=== PATIENT | male | born 1945 | race Caucasian/White ===

== ENCOUNTER 2017-05-13 08:10 | Emergency (ER) | payer MEDICARE, BC ==
--- NOTE | 2017-05-13 08:40 | EDM.PDOC ---
ED HPI GENERAL MEDICAL PROBLEM - General Chief Complaint: Respiratory Problem Stated Complaint: STOMACH PAIN [id number] Time Seen by Provider: 05/13/17 08:30 Source of Information: Reports: Patient, Family, RN, RN Notes Reviewed History Limitations: Reports: No Limitations - History of Present Illness INITIAL COMMENTS - FREE TEXT/NARRATIVE: Pt presents to ER with c/o cough, sneezing, runny nose for the past 3-4 days. He states he has also had abdominal discomfort for the past 3-4 days. He states his cough is productive of clear phlegm. He admits to chills, decreased appetite , and increased SOB with exertion. He denies fever, sore throat, and chest pains. states the pt has been told in the past that his BP is high and he should be treated for it. She also states that the patient drinks 3-4 alcoholic drinks per day. Onset: Gradual Location: Reports: Chest, Abdomen Severity: Moderate Improves with: Reports: None Worsens with: Reports: None Associated Symptoms: Reports: Cough, cough w sputum, Fever/Chills, Loss of Appetite, Shortness of Breath - Related Data Allergies Allergy/AdvReac Type Severity Reaction Status Date / Time No Known Allergies Allergy Verified 05/13/17 08:37 Home Meds: Home Meds . [No Known Home Meds] 05/13/17 [History] Past Medical History HEENT History: Reports: Impaired Vision Other HEENT History: wears glasses Cardiovascular History: Reports: Hypertension, Other (See Below) Other Cardiovascular History: told his BP has been high but has never been on medication Respiratory History: Reports: None Gastrointestinal History: Reports: None Genitourinary History: Reports: None Musculoskeletal History: Reports: None Neurological History: Reports: None Psychiatric History: Reports: None Endocrine/Metabolic History: Reports: None Hematologic History: Reports: None Immunologic History: Reports: None Oncologic (Cancer) History: Reports: None Dermatologic History: Reports: None Social & Family History - Tobacco Use Smoking Status *Q: Never Smoker - Caffeine Use Caffeine Use: Reports: Coffee - Recreational Drug Use Recreational Drug Use: No ED ROS GENERAL - Review of Systems Review Of Systems: ROS reveals no pertinent complaints other than HPI. ED EXAM, GENERAL - Physical Exam Exam: See Below Exam Limited By: No Limitations General Appearance: Alert, WD/WN, No Apparent Distress Eye Exam: Bilateral Eye: EOMI, Normal Inspection Ears: Normal External Exam, Hearing Grossly Normal Nose: Normal Inspection Throat/Mouth: Normal Inspection, Normal Voice, No Airway Compromise Head: Atraumatic, Normocephalic Neck: Normal Inspection, Supple, Non-Tender, Full Range of Motion Respiratory/Chest: No Respiratory Distress, No Accessory Muscle Use, Chest Non- Tender, Crackles (bases bilat) Cardiovascular: Normal Peripheral Pulses, Regular Rate, Rhythm, No Edema, No Gallop, No JVD, No Murmur, No Rub Peripheral Pulses: 2+: Radial (L), Radial (R), Dorsalis Pedis (L), Dorsalis Pedis (R) GI/Abdominal: Normal Bowel Sounds, Soft, Distended (Male) Exam: Deferred Rectal (Males) Exam: Deferred Back Exam: Normal Inspection, Full Range of Motion Extremities: Normal Inspection, Normal Range of Motion, Non-Tender, No Pedal Edema, Normal Capillary Refill Neurological: Alert, Oriented, CN II-XII Intact, Normal Cognition, Normal Gait, Normal Reflexes, No Motor/Sensory Deficits Psychiatric: Normal Affect, Normal Mood Skin Exam: Warm, Dry, Intact, Normal Color, No Rash Lymphatic: No Adenopathy EKG INTERPRETATION EKG Date: 05/13/17 Time: 08:47 Rhythm: NSR Rate (Beats/Min): 86 Yoder: Normal P-Wave: Present QRS: Normal ST-T: Normal QT: Normal Comparison: NA - No Prior EKG EKG Interpretation Comments: Nonspecific intraventricular conduction delay, left ventricular hypertrophy, inferior infarct, age indeterminate. Course - Vital Signs Last Recorded V/S: Last Vital Signs Temp 97.8 F 05/13/17 10:09 Pulse 79 05/13/17 10:09 Resp 18 05/13/17 10:09 BP 181/103 H 05/13/17 10:09 Pulse Ox 97 05/13/17 10:09 - Orders/Labs/Meds Orders: Active Orders 24 hr Category Date Time Status EKG Documentation Completion [RC] STAT Care 05/13/17 08:36 Active Labs: Laboratory Tests 05/13/17 05/13/17 05/13/17 Range/Units 08:46 08:46 09:20 WBC 5.4 (5.0-10.0) 10^3/uL RBC 4.98 (4.6-6.2) 10^6/uL Hgb 16.8 (14.0-18.0) g/dL Hct 48.2 (40.0-54.0) % MCV 96.8 (80-100) fL MCH 33.7 (27.0-34.0) pg MCHC 34.9 (33.0-35.0) g/dL Plt Count 227 (150-450) 10^3/uL Neut % (Auto) 65.4 (42.2-75.2) % Lymph % (Auto) 19.9 L (20.5-50.1) % [place] % (Auto) 11.5 H (2-8) % Eos % (Auto) 2.8 (1.0-3.0) % Baso % (Auto) 0.4 (0.0-1.0) % Sodium 136 (135-145) mmol/L Potassium 3.8 (3.6-5.0) mmol/L Chloride 102 (101-111) mmol/L Carbon Dioxide 23.0 (21.0-31.0) mmol/L Anion Gap 14.8 BUN 12 (7-18) mg/dL Creatinine 0.8 (0.6-1.3) mg/dL Est Cr Clr Drug Dosing 80.33 mL/min Estimated GFR (MDRD) > 60 BUN/Creatinine Ratio 15.00 Glucose 102 (74-105) mg/dL Calcium 9.0 (8.4-10.2) mg/dl Total Bilirubin 1.6 H (0.2-1.0) mg/dL AST 47 H (10-42) IU/L ALT 44 (10-60) IU/L Alkaline Phosphatase 52 (42-121) IU/L Troponin I < 0.02 (0.00-0.02) ng/ml B-Natriuretic Peptide 102 H (0-100) pg/ml Total Protein 7.3 (6.7-8.2) g/dl Albumin 3.9 (3.2-5.5) g/dl Globulin 3.4 Albumin/Globulin Ratio 1.15 Urine Color Dark yellow (YELLOW) Urine Appearance Slightly cloudy (CLEAR) Urine pH 7.0 (5.0-9.0) Ur Specific [place] 1.020 (1.005-1.030) Urine Protein 30 H (NEGATIVE) Urine Glucose (UA) Negative (NEGATIVE) Urine Ketones 40 H (NEGATIVE) Urine Occult Blood Negative (NEGATIVE) Urine Nitrite Negative (NEGATIVE) Urine Bilirubin Small H (NEGATIVE) Urine Urobilinogen 1.0 (0.2-1.0) mg/dL Ur Leukocyte Esterase Negative (NEGATIVE) Urine RBC 0-5 /HPF Urine WBC 0-5 (0-5/HPF) /HPF Ur Epithelial Cells Rare /HPF Urine Bacteria Rare (0-FEW/HPF) /HPF Urine Mucus Few H /LPF Meds: Medications Discontinued Medications Generic Name Dose Route Start Last Admin Trade Name Silverq PRN Reason Stop Dose Admin Iopamidol 75 ml 05/13/17 09:20 05/13/17 09:48 Isovue-300 (61%) IVPUSH 05/13/17 09:21 75 ml ONETIME ONE Administration Departure - Departure Time of Disposition: 11:06 Disposition: Home, Self-Care 01 Condition: Fair Clinical Impression: Anxiety, Viral upper respiratory illness - Discharge Information Instructions: Shortness of Breath, Saes-tj-Tuhd, Upper Respiratory Infection, Adult, [id number], Panic Attacks, [id number] Forms: ED Department Discharge Additional Instructions: RX: Omeprazole, Zofran ODT, Lorazepam Make an appointment to establish with a primary care facility. - My Orders Last 24 Hours: My Active Orders 05/13/17 08:36 EKG Documentation Completion [RC] STAT - Assessment/Plan Last 24 Hours: My Active Orders 05/13/17 08:36 EKG Documentation Completion [RC] STAT
[2017-05-13 09:14] LABS: CHLORIDE,CL 102 mmol/L (101-111); SODIUM,NA 136 mmol/L (135-145)
[2017-05-13] MEDS ORDERED: Iopamidol 612 MG/ML 75 ML Bottle IVPUSH ONE (09:20)
[2017-05-13] MEDS ORDERED: Ondansetron 4 MG/2 ML SDV IV ONE (11:06)
--- NOTE | 2017-05-17 10:47 | EKG ---
05/13/2017 - RENUKA DAMON - FINDINGS: I reviewed the EKG and agree with the machine's reading. [facility] /[id number]
== END 2017-05-13 11:31 | disposition home or self-care (01) ==
LOC: DL.ED 08:10
DX: J06.9 Acute upper respiratory infection, unspecified (principal); F41.9 Anxiety disorder, unspecified; I10 Essential (primary) hypertension
CPT/HCPCS: 36415; 71260; 74177; 80053; 81001; 83880; 84484; 85025; 93005; 93010; 96374; 99285; J2405; Q9967; 99284

== ENCOUNTER 2019-07-13 13:05 | Emergency (ER) | payer BC, MEDICARE | END 2019-07-13 16:10 | disposition left against medical advice (07) | LOC: DL.ED 13:05 | DX: Z53.21 Procedure and treatment not carried out due to patient leaving prior to being seen by health care provider (principal) ==

== ENCOUNTER 2019-07-14 09:46 | Emergency (ER) | payer MEDICARE, BC ==
[2019-07-14] MEDS ORDERED: amLODIPine 5 MG Tab PO ONE (11:47)
[2019-07-14] MEDS ORDERED: Hydrochlorothiazide 25 MG Tab PO ONE (11:48)
[2019-07-14 12:39] LABS: ANION GAP 13.5; CHLORIDE,CL 100 mmol/L (101-111); SODIUM,NA 136 mmol/L (135-145)
--- NOTE | 2019-07-15 17:50 | EDM.PDOC ---
Scribed by Tracey Paul 07/14/19 1104 for Fiordaliza Crooks NP ED HPI GENERAL MEDICAL PROBLEM - General Chief Complaint: General Stated Complaint: SEVERE COLD Time Seen by Provider: 07/14/19 10:43 Source of Information: Reports: Patient, RN, RN Notes Reviewed History Limitations: Reports: No Limitations - History of Present Illness INITIAL COMMENTS - FREE TEXT/NARRATIVE: A 74-year-old gentleman who presents with cold and cough symptoms with no productive cough for 4 days. No fevers, chills, shortness of breath, chest pain , peripheral edema, nausea, vomiting, nasal congestion or sinus congestion. He has not tried anything for his symptoms. Blood pressure noted to be elevated. Patient has not taken his blood pressure medication (Propranolol) for 4 days. He denies any chest pain, palpitations, headaches, or peripheral edema. Onset Date: 07/10/19 Duration: Getting Worse Location: Reports: Chest Quality: Reports: Ache Severity: Mild Improves with: Reports: None Worsens with: Reports: None Associated Symptoms: Reports: No Other Symptoms - Related Data Allergies Allergy/AdvReac Type Severity Reaction Status Date / Time No Known Allergies Allergy Verified 07/13/19 14:05 Home Meds: Home Meds . [No Known Home Meds] 05/13/17 [History] Past Medical History HEENT History: Reports: Impaired Vision Other HEENT History: wears glasses Cardiovascular History: Reports: Hypertension, Other (See Below) Other Cardiovascular History: told his BP has been high but has never been on medication Respiratory History: Reports: None Gastrointestinal History: Reports: GERD Genitourinary History: Reports: None Musculoskeletal History: Reports: None Neurological History: Reports: None Psychiatric History: Reports: None Endocrine/Metabolic History: Reports: None Hematologic History: Reports: None Immunologic History: Reports: None Oncologic (Cancer) History: Reports: None Dermatologic History: Reports: None Social & Family History - Tobacco Use Smoking Status *Q: Never Smoker Second Hand Smoke Exposure: No - Caffeine Use Caffeine Use: Reports: Coffee - Alcohol Use Days Per Week of Alcohol Use: 7 Number of Drinks Per Day: 2 Total Drinks Per Week: 14 - Recreational Drug Use Recreational Drug Use: No ED ROS GENERAL - Review of Systems Review Of Systems: Comprehensive ROS is negative, except as noted in HPI. ED EXAM, GENERAL - Physical Exam Exam: See Below Exam Limited By: No Limitations General Appearance: Alert, WD/WN, No Apparent Distress Eye Exam: Bilateral Eye: EOMI, Normal Inspection, PERRL Ears: Normal External Exam, Normal Canal, Hearing Grossly Normal, Normal TMs Nose: Normal Inspection, Normal Mucosa, No Blood Throat/Mouth: Normal Inspection, Normal Lips, Normal Teeth, Normal Gums, Normal Oropharynx, Normal Voice, No Airway Compromise Head: Atraumatic, Normocephalic Neck: Normal Inspection, Supple, Non-Tender, Full Range of Motion Respiratory/Chest: No Respiratory Distress, No Accessory Muscle Use, Chest Non- Tender, Crackles (left lower lobe) Cardiovascular: Normal Peripheral Pulses, Regular Rate, Rhythm, No Edema, No Gallop, No JVD, No Murmur, No Rub GI/Abdominal: Normal Bowel Sounds, Soft, Non-Tender, No Organomegaly, No Distention, No Abnormal Bruit, No Mass (Male) Exam: Deferred Rectal (Males) Exam: Deferred Back Exam: Normal Inspection, Full Range of Motion, NT Extremities: Normal Inspection, Normal Range of Motion, Non-Tender, Normal Capillary Refill, No Pedal Edema Neurological: Alert, Oriented, CN II-XII Intact, Normal Cognition, Normal Gait, Normal Reflexes, No Motor/Sensory Deficits Psychiatric: Normal Affect, Normal Mood Skin Exam: Warm, Dry, Intact, Normal Color, No Rash Lymphatic: No Adenopathy Course - Vital Signs Last Recorded V/S: Last Vital Signs Temp 98.1 F 07/14/19 10:11 Pulse 88 07/14/19 10:11 Resp 20 07/14/19 10:11 BP 197/99 H 07/14/19 12:23 Pulse Ox 98 07/14/19 10:11 - Orders/Labs/Meds Labs: Laboratory Tests 07/14/19 Range/Units 12:16 Sodium 136 (135-145) mmol/L Potassium 3.5 L (3.6-5.0) mmol/L Chloride 100 L (101-111) mmol/L Carbon Dioxide 26.0 (21.0-31.0) mmol/L Anion Gap 13.5 BUN 9 (7-18) mg/dL Creatinine 0.8 (0.6-1.3) mg/dL Est Cr Clr Drug Dosing 72.60 mL/min Estimated GFR (MDRD) > 60 Glucose 101 (74-105) mg/dL Calcium 8.7 (8.4-10.2) mg/dl Meds: Medications Discontinued Medications Generic Name Dose Route Start Last Admin Trade Name Kristopher PRN Reason Stop Dose Admin Amlodipine Besylate 5 mg 07/14/19 11:47 07/14/19 12:23 Norvasc PO 07/14/19 11:48 5 mg ONETIME ONE Administration Hydrochlorothiazide 25 mg 07/14/19 11:48 07/14/19 12:23 Hydrochlorothiazide PO 07/14/19 11:49 25 mg ONETIME ONE Administration - Radiology Interpretation Free Text/Narrative:: Chest x-ray: No acute findings. See rad report. - Re-Assessments/Exams Free Text/Narrative Re-Assessment/Exam: Review lab and chest ray results with patient. HCTZ 25 mg and Norvasc 5 mg administered with some reduction in BP. RX for Norvasc, HCTZ, potassium and Flonase send with patient. Follow up with two days. Departure - Departure Time of Disposition: 13:15 Disposition: Home, Self-Care 01 Condition: Good Clinical Impression: Viral URI Hypertension Qualifiers: Hypertension type: essential hypertension Qualified Code(s): I10 - Essential ( primary) hypertension - Discharge Information Instructions: Upper Respiratory Infection, Adult, Iuur-[id number], Hypertension, Cwxx-[id number] Referrals: PCP,None [Primary Care Provider] - Forms: ED Department Discharge Additional Instructions: Take medications as prescribed. follow up with PCP in the clinic in two days. [place] fluids and rest. Return to the ER if symptoms worsens. Sepsis Event Note - Evaluation Sepsis Screening Result: No Definite Risk - Focused Exam Date Exam was Performed: 07/15/19 Time Exam was Performed: 17:49 I have read and agree with the documentation that has been completed regarding this visit. By signing this record, I attest that the documentation was completed in my physical presence and is an accurate record of the encounter.
== END 2019-07-14 13:50 | disposition home or self-care (01) ==
LOC: DL.ED 09:46
DX: J06.9 Acute upper respiratory infection, unspecified (principal); I10 Essential (primary) hypertension
CPT/HCPCS: 36415; 71046; 80048; 87804; 99283; A9270

== ENCOUNTER 2020-04-21 11:33 | Inpatient (IN) | payer MEDICARE, BC ==
[~2020-04-21 11:33] MED LIST: cefTRIAXone 1 GM in Sodium Chloride 0.9% 50 ML IV SCH
[2020-04-21] MEDS ORDERED: Ondansetron 4 MG/2 ML SDV IVPUSH ONE (14:05)
[2020-04-21] MEDS ORDERED: Sodium Chloride 0.9% 1,000 ML IV ONE (14:05)
[2020-04-21 14:43] LABS: ANION GAP 12.9 mEq/L (7-13); CHLORIDE,CL 94 mmol/L (98-107); SODIUM,NA 134 mmol/L (136-145)
--- NOTE | 2020-04-21 16:21 | EDM.PDOC ---
ED HPI GENERAL MEDICAL PROBLEM - General Chief Complaint: General Stated Complaint: NAUSEA,COUGH,FATIGE,WEAK,KNOWN EXPOSURE Time Seen by Provider: 04/21/20 14:00 Source of Information: Reports: Patient History Limitations: Reports: No Limitations - History of Present Illness INITIAL COMMENTS - FREE TEXT/NARRATIVE: This 75 yo male patient reports to the ED with increased shortness of breath over the past 4 days. The patient also reports some chest tightness. The patient has been exposed to COVID through close family contact. Onset: Gradual Duration: Day(s):, Constant, Getting Worse Location: Reports: Chest Quality: Reports: Other Severity: Moderate Improves with: Reports: None Worsens with: Reports: None Context: Reports: Activity Associated Symptoms: Reports: Cough, Shortness of Breath Left Chest Pain Score (Numeric/FACES): 5 - Related Data Allergies Allergy/AdvReac Type Severity Reaction Status Date / Time No Known Allergies Allergy Verified 04/21/20 13:12 Home Meds: Home Meds Furosemide [Lasix] 20 mg PO DAILY 04/21/20 [History] amLODIPine [Norvasc] 5 mg PO DAILY 04/21/20 [History] lisinopriL [Lisinopril] 10 mg PO DAILY 04/21/20 [History] Past Medical History HEENT History: Reports: Impaired Vision Other HEENT History: wears glasses Cardiovascular History: Reports: Hypertension, Other (See Below) Other Cardiovascular History: told his BP has been high but has never been on medication Respiratory History: Reports: None Gastrointestinal History: Reports: GERD Genitourinary History: Reports: None Musculoskeletal History: Reports: None Neurological History: Reports: None Psychiatric History: Reports: None Endocrine/Metabolic History: Reports: None Hematologic History: Reports: None Immunologic History: Reports: None Oncologic (Cancer) History: Reports: None Dermatologic History: Reports: None - Infectious Disease History Infectious Disease History: Reports: None Social & Family History - Family History Family Medical History: Unobtainable - Tobacco Use Tobacco Use Status *Q: Never Tobacco User Second Hand Smoke Exposure: No - Caffeine Use Caffeine Use: Reports: Coffee - Recreational Drug Use Recreational Drug Use: No ED ROS GENERAL - Review of Systems Review Of Systems: Comprehensive ROS is negative, except as noted in HPI. ED EXAM, GENERAL - Physical Exam Exam: See Below Exam Limited By: No Limitations General Appearance: Alert, WD/WN, Moderate Distress, Obese Eye Exam: Bilateral Eye: EOMI, Normal Inspection, PERRL Ears: Normal External Exam, Normal Canal, Hearing Grossly Normal, Normal TMs Nose: Normal Inspection, Normal Mucosa, No Blood Throat/Mouth: Normal Inspection, Normal Lips, Normal Teeth, Normal Gums, Normal Oropharynx, Normal Voice, No Airway Compromise Head: Atraumatic, Normocephalic Neck: Normal Inspection, Supple, Non-Tender, Full Range of Motion Respiratory/Chest: Decreased Breath Sounds Cardiovascular: Normal Peripheral Pulses, Regular Rate, Rhythm, No Edema, No Gallop, No JVD, No Murmur, No Rub GI/Abdominal: Normal Bowel Sounds, Soft, Non-Tender, No Organomegaly, No Distention, No Abnormal Bruit, No Mass (Male) Exam: Deferred Rectal (Males) Exam: Deferred Back Exam: Normal Inspection, Full Range of Motion, NT Extremities: Normal Inspection, Normal Range of Motion, Non-Tender, Normal Capillary Refill, No Pedal Edema Neurological: Alert, Oriented, CN II-XII Intact, Normal Cognition, Normal Gait, Normal Reflexes, No Motor/Sensory Deficits Psychiatric: Normal Affect, Normal Mood Skin Exam: Warm, Dry, Intact, Normal Color, No Rash Lymphatic: No Adenopathy Course - Vital Signs Last Recorded V/S: Last Vital Signs Temp 36.4 C 04/21/20 11:49 Pulse 110 H 04/21/20 11:49 Resp 18 04/21/20 11:49 BP 124/76 04/21/20 11:49 Pulse Ox 95 04/21/20 11:49 - Orders/Labs/Meds Orders: Active Orders 24 hr Category Date Time Status EKG 12 Lead [EKG Documentation Completion] [RC] URGENT Care 04/21/20 13:39 Active Chest wo Cont [CT] Urgent Exams 04/21/20 15:29 Taken CULTURE BLOOD [BC] Stat Lab 04/21/20 13:48 Ordered Labs: Laboratory Tests 04/21/20 04/21/20 04/21/20 Range/Units 13:30 14:10 14:10 WBC 5.2 (5.0-10.0) 10^3/uL RBC 5.02 (4.6-6.2) 10^6/uL Hgb 17.5 (14.0-18.0) g/dL Hct 48.6 (40.0-54.0) % MCV 96.8 (80-100) fL MCH 34.9 H (27.0-34.0) pg MCHC 36.0 H (33.0-35.0) g/dL Plt Count 215 D (150-450) 10^3/uL Neut % (Auto) 73.3 (42.2-75.2) % Lymph % (Auto) 11.2 L (20.5-50.1) % [place] % (Auto) 15.3 H (2-8) % Eos % (Auto) 0.0 L (1.0-3.0) % Baso % (Auto) 0.2 (0.0-1.0) % D-Dimer, Quantitative (0-400) ng/mL Sodium 134 L (136-145) mmol/L Potassium 2.9 L (3.5-5.1) mmol/L Chloride 94 L (98-107) mmol/L Carbon Dioxide 30 (21-32) mmol/L Anion Gap 12.9 (7-13) mEq/L BUN 19 H (7-18) mg/dL Creatinine 1.13 (0.70-1.30) mg/dL Est Cr Clr Drug Dosing 50.65 mL/min Estimated GFR (MDRD) > 60 BUN/Creatinine Ratio 16.8 (No establ ref range) Glucose 109 H (74-99) mg/dL Lactic Acid (0.4-2.0) mmol/L Calcium 8.3 L (8.5-10.1) mg/dL Total Bilirubin 1.1 H (0.2-1.0) mg/dL AST 97 H (15-37) U/L ALT 119 H (16-63) U/L Alkaline Phosphatase 79 (46-116) U/L Troponin I 0.018 (0.000-0.056) ng/mL Total Protein 7.4 (6.4-8.2) g/dL Albumin 3.0 L (3.4-5.0) g/dL Globulin 4.4 Albumin/Globulin Ratio 0.68 SARS CoV-2 RNA Rapid BORIS Positive H (NEGATIVE) 04/21/20 04/21/20 Range/Units 14:10 14:10 WBC (5.0-10.0) 10^3/uL RBC (4.6-6.2) 10^6/uL Hgb (14.0-18.0) g/dL Hct (40.0-54.0) % MCV (80-100) fL MCH (27.0-34.0) pg MCHC (33.0-35.0) g/dL Plt Count (150-450) 10^3/uL Neut % (Auto) (42.2-75.2) % Lymph % (Auto) (20.5-50.1) % [place] % (Auto) (2-8) % Eos % (Auto) (1.0-3.0) % Baso % (Auto) (0.0-1.0) % D-Dimer, Quantitative 479 H (0-400) ng/mL Sodium (136-145) mmol/L Potassium (3.5-5.1) mmol/L Chloride (98-107) mmol/L Carbon Dioxide (21-32) mmol/L Anion Gap (7-13) mEq/L BUN (7-18) mg/dL Creatinine (0.70-1.30) mg/dL Est Cr Clr Drug Dosing mL/min Estimated GFR (MDRD) BUN/Creatinine Ratio (No establ ref range) Glucose (74-99) mg/dL Lactic Acid 1.7 (0.4-2.0) mmol/L Calcium (8.5-10.1) mg/dL Total Bilirubin (0.2-1.0) mg/dL AST (15-37) U/L ALT (16-63) U/L Alkaline Phosphatase (46-116) U/L Troponin I (0.000-0.056) ng/mL Total Protein (6.4-8.2) g/dL Albumin (3.4-5.0) g/dL Globulin Albumin/Globulin Ratio SARS CoV-2 RNA Rapid BORIS (NEGATIVE) Meds: Medications Discontinued Medications Generic Name Dose Route Start Last Admin Trade Name Freq PRN Reason Stop Dose Admin Sodium Chloride 1,000 mls @ 999 mls/hr 04/21/20 14:05 04/21/20 14:18 Normal Saline IV 04/21/20 15:05 999 mls/hr .BOLUS ONE Administration Ondansetron HCl 4 mg 04/21/20 14:05 04/21/20 14:18 Zofran IVPUSH 04/21/20 14:06 4 mg ONETIME ONE Administration Departure - Departure Time of Disposition: 16:20 Disposition: Admitted As Inpatient 68 Condition: Fair Clinical Impression: Hypoxemia, COVID-19 - Discharge Information *PRESCRIPTION DRUG MONITORING PROGRAM REVIEWED*: Not Applicable *COPY OF PRESCRIPTION DRUG MONITORING REPORT IN PATIENT JAYLEEN: Not Applicable Care Plan Goals: Discussed the patient's history, examination, lab and CT results with Dr. Medina. Dr. Medina accepted the patient for continued evaluation and further management as an inpatient at [facility]. Sepsis Event Note (ED) - Evaluation Sepsis Screening Result: No Definite Risk - Focused Exam Vital Signs: Vital Signs Temp Pulse Resp BP Pulse Ox 04/21/20 11:49 36.4 C 110 H 18 124/76 95 - My Orders Last 24 Hours: My Active Orders 04/21/20 13:39 EKG 12 Lead [EKG Documentation Completion] [RC] URGENT 04/21/20 13:48 CULTURE BLOOD [BC] Stat 04/21/20 15:29 Chest wo Cont [CT] Urgent - Assessment/Plan Last 24 Hours: My Active Orders 04/21/20 13:39 EKG 12 Lead [EKG Documentation Completion] [RC] URGENT 04/21/20 13:48 CULTURE BLOOD [BC] Stat 04/21/20 15:29 Chest wo Cont [CT] Urgent
--- NOTE | 2020-04-21 16:33 | CT ---
EXAMINATION: Chest wo Cont SEX: Male AGE: 75 years CLINICAL HISTORY: 75-year-old male experiencing shortness of breath (: Positive). Chest radiograph 14 July 2019 revealed "no acute findings". Scan technique: Volume acquisition of data emergency unenhanced CT scan of the chest (bony thorax, lungs and mediastinum) obtained with patient lying supine on the Siemens multi slice scanner [place], [place]. All data archived in the PACS system for storage, reformatting and study. Interpretation: Abnormal. 1. *Peripheral, multi lobar subpleural "groundglass" densities scattered throughout both lung mkceon that have characteristic of diffuse vasculitis and Covid Pneumonia. 2. No proximal lobar consolidation or air bronchograms. No atelectasis/collapse. 3. No malignant-appearing lung mass or significant hilar/mediastinal lymphadenopathy. 4. Normal cardiac silhouette. No pericardial effusion. Calcifications normal caliber ectatic thoracic aorta. 5. No pulmonary vascular congestion, cephalization of vascular flow, alveolar edema or pleural effusion. 6. Kyphosis dorsal spine associated with anterior compression midthoracic vertebra and associated hypertrophic marginal spondylosis. 7. No pneumothorax or pneumomediastinum. Midline tracheal bronchial airway unremarkable. 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 No sign of malignancy, heart failure or bacterial pneumonia.
[2020-04-21] MEDS ORDERED: Azithromycin 500 MG in Sodium Chloride 0.9% 250 ML IV SCH ×2 (17:00→17:45)
[2020-04-21] MEDS ORDERED: Ondansetron 4 MG Tab.DIS PO PRN (17:04)
[2020-04-21] MEDS ORDERED: Acetaminophen 325 MG Tab PO PRN (17:04)
[2020-04-21] MEDS ORDERED: Docusate Sodium 100 MG Cap PO PRN (17:04)
[2020-04-21] MEDS ORDERED: cefTRIAXone 1,000 MG in Sodium Chloride 0.9% 50 ML IV SCH (17:15)
[2020-04-21] MEDS: Dexamethasone 4 MG/ML SDV IVPUSH SCH ×2 (17:55)
[2020-04-21] MEDS: Azithromycin 500 MG in Sodium Chloride 0.9% 250 ML IV SCH (17:59)
[2020-04-21] MEDS: cefTRIAXone 1 GM in Sodium Chloride 0.9% 50 ML IV SCH (17:59)
[2020-04-21] MEDS: Formoterol/Mometasone 200-5 MCG 8.8 GM Inhaler IH SCH (18:05)
[2020-04-21] MEDS: Sodium Chloride 0.9% 1,000 ML IV SCH (18:06)
--- NOTE | 2020-04-21 19:25 | HP ---
CHIEF COMPLAINT: Cough and nausea and fatigue. HISTORY OF PRESENT ILLNESS: The patient is a 75-year-old gentleman who was admitted through the emergency room because of increasing shortness of breath over the past 4 days and the patient also complained of some chest tightness with deep inspiration and the patient has been exposed to COVID through close family contact. The patient was also complaining of nausea. In the emergency room, the patient was noted to have oxygen saturation in the 84% with moderate exertion, but 91% with rest. The patient had a CAT scan of the chest and this showed COVID pneumonia. Because of this, the patient was then admitted for further management. PAST MEDICAL HISTORY: Remarkable for hypertension. REVIEW OF SYSTEMS: The patient denies any orthopnea, PND, headache, diarrhea, dysuria. SOCIAL HISTORY: The patient is a nonsmoker and nonalcohol drinker. MEDICATIONS: Lasix 20 mg daily, amlodipine 5 mg daily, lisinopril 10 mg daily. ALLERGIES: No known drug allergies. PHYSICAL EXAMINATION: General: The patient is alert and oriented, very pleasant, not in any acute respiratory distress. He is on oxygen per nasal cannula. Vital Signs: Blood pressure is 124/76, pulse of 110, respirations of 18, saturation is 95% on room air and this is at rest. SHEENT: Normocephalic. There are pink palpebral conjunctivae. Sclerae anicteric. No JVD. No lymphadenopathy. Heart: Regular rate and rhythm. Normal S1 and S2. No gallops. No rubs. Lungs: Have diminished breath sounds in both bases, but no significant crackles, no wheezing. Abdomen: Soft, nontender. Bowel sounds positive. Extremities: Negative for any pedal edema. No calf tenderness. LABORATORY WORKUP: CBC: WBC 5.2, hemoglobin is 17.5, hematocrit is 48.6, platelets are 215. Comp panel remarkable for sodium 134, potassium is 2.9, chloride of 94, glucose is 109, AST is 97, ALT is 119, and the rest of the panel unremarkable. D-dimer is 479. Lactic acid is 1.7. CAT scan of the chest showed ground-glass appearance compatible with COVID pneumonia. ADMITTING DIAGNOSES: 1. Coronavirus disease pneumonia. 2. Hypoxemia. 3. Hypokalemia. 4. Hyponatremia. 5. Hypochloremia. TREATMENT PLAN: The patient is going to be admitted to acute care COVID isolation unit. The patient is going to be empirically started on dexamethasone IV as well as IV antibiotics. The patient also will be started on remdesivir as discussed with the patient. He will be resumed on his lisinopril and amlodipine. He will also be on DVT prophylaxis and the rest of the management as necessary. No intubation and no cardiac resuscitation as per the patient's wishes. [facility] /[id number]
[2020-04-21] MEDS ORDERED: Potassium Chloride 10 MEQ Tab.ER PO ONE (19:30)
[2020-04-21] MEDS ORDERED: Water For Injection, Sterile 40 ML ONE (20:16)
[2020-04-21] MEDS: Albuterol 6.7 GM Inhaler INH SCH (21:15)
[2020-04-22] MEDS: Sodium Chloride 0.9% 1,000 ML IV SCH ×2 (00:22→17:13)
--- NOTE | 2020-04-22 06:42 | HP ---
CONTINUATION: I spoke with the patient and provided information about remdesivir treatment as being under emergency use authorization and not fully FDA approved or reviewed. I discussed potential side effects including liver abnormalities and also discussed other potential treatment options that are currently not FDA approved to treat COVID-19. The patient gives permission for remdesivir. [facility] /[id number]
[2020-04-22 07:11] LABS: ANION GAP 13.3 mEq/L (7-13); CHLORIDE,CL 102 mmol/L (98-107); SODIUM,NA 138 mmol/L (136-145)
[2020-04-22] MEDS ORDERED: Potassium Chloride 10 MEQ Tab.ER PO ONE (07:24)
[2020-04-22] MEDS: Azithromycin 500 MG in Sodium Chloride 0.9% 250 ML IV SCH ×2 (07:45→17:12)
[2020-04-22] MEDS: Formoterol/Mometasone 200-5 MCG 8.8 GM Inhaler IH SCH ×2 (08:57→17:12)
[2020-04-22] MEDS: Enoxaparin 40 MG/0.4 ML Syringe SUBCUT SCH (08:58)
[2020-04-22] MEDS: amLODIPine 5 MG Tab PO SCH (08:58)
[2020-04-22] MEDS: Albuterol 6.7 GM Inhaler INH SCH ×4 (09:02→21:28)
[2020-04-22] MEDS: Lisinopril 10 MG Tab PO SCH (09:02)
--- NOTE | 2020-04-22 10:33 | PN ---
DATE: 04/22/2020 SUBJECTIVE: The patient is a 75-year-old gentleman admitted with shortness of breath and COVID pneumonia and hypokalemia. The patient had a good night's sleep, and this morning, he is feeling a little bit better and he is not short of breath and coughing spells has also improved. The patient denies any chest pain, headache, abdominal pain, or any other complaints. LABORATORY DATA: Lab workup this morning; CBC: WBC 3.4, hemoglobin is 15.7, hematocrit is 44.6, platelets 194. Comp panel: Potassium is 3.3 (improving) and glucose is 133, calcium is 7.3, AST is 71, ALT is 91 (improving), total protein is 5.9, and albumin is 2.3. The rest of the panel unremarkable. OBJECTIVE: Vital Signs: Blood pressure is 146/73, pulse of 71, respirations of 16, temperature of 97.6, saturation is 95% on 2 L per nasal cannula. Heart: Regular rate and rhythm. Normal S1 and S2. No gallops. No rubs. Lungs: Diminished breath sounds on both bases, but no crackles, no wheezing. Abdomen: Protuberant, but soft, nontender. Bowel sounds positive. Extremities: Negative for any pedal edema. No calf tenderness. MEDICATIONS: Reviewed. PLAN: We will continue with his IV antibiotics that is azithromycin and ceftriaxone. We will continue with IV dexamethasone and remdesivir and DVT prophylaxis, and will also continue with his amlodipine as well as benazepril, and we will give him another dose of potassium chloride 40 mEq p.o. x1 today. We will recheck basic metabolic panel, CMP in a.m. [facility] /[id number]
[2020-04-22] MEDS: Dexamethasone 4 MG/ML SDV IVPUSH SCH (17:10)
[2020-04-22] MEDS: cefTRIAXone 1 GM in Sodium Chloride 0.9% 50 ML IV SCH (18:56)
[2020-04-23] MEDS: Formoterol/Mometasone 200-5 MCG 8.8 GM Inhaler IH SCH ×3 (05:24→17:57)
[2020-04-23 07:19] LABS: ANION GAP 13.6 mEq/L (7-13); CHLORIDE,CL 102 mmol/L (98-107); SODIUM,NA 136 mmol/L (136-145)
[2020-04-23] MEDS: amLODIPine 5 MG Tab PO SCH (08:08)
[2020-04-23] MEDS: Lisinopril 10 MG Tab PO SCH (08:08)
[2020-04-23] MEDS: Enoxaparin 40 MG/0.4 ML Syringe SUBCUT SCH (08:09)
[2020-04-23] MEDS: Albuterol 6.7 GM Inhaler INH SCH ×4 (08:09→20:10)
[2020-04-23] MEDS ORDERED: Sodium Chloride 0.9% 10 ML Syringe FLUSH PRN (08:22)
--- NOTE | 2020-04-23 11:22 | PN ---
DATE: 04/23/2020 SUBJECTIVE: The patient is slowly improving, although he is still complaining of some nausea and fatigue and mild shortness of breath, but his oxygen saturation is improving and O2 sat this morning is 95% and this is on 1 L per nasal cannula. Otherwise, he denies any chest pain, abdominal pain, headache, nor any other complaints. LABORATORY DATA: Lab workup this morning, CBC; WBC is 3.8, hemoglobin is 15, hematocrit is 42, and platelet is 200. Comp panel, AST is 54, ALT is 79 (improving), and glucose is 116. The rest of the panel unremarkable. OBJECTIVE: Vital Signs: Blood pressure is 148/90, pulse of 68, respiration of 20, temperature of 97.8, and saturation is 95% on 1 L per nasal cannula. Heart: Regular rate and rhythm. No gallops. No rubs. Lungs: Diminished breath sounds on both bases, but no significant crackles. No wheezing. Abdomen: Protuberant, but soft and nontender. Bowel sounds positive. Extremity: Remarkable for trace bilateral pedal edema. No calf tenderness. MEDICATIONS: Reviewed. PLAN: We will continue with his present management and continue with IV antibiotics and dexamethasone as well as remdesivir. I am going to discontinue his IV fluids and I am going to resume his Lasix as at home. [facility] /[id number]
[2020-04-23] MEDS: Azithromycin 500 MG in Sodium Chloride 0.9% 250 ML IV SCH (17:25)
[2020-04-23] MEDS: Dexamethasone 4 MG/ML SDV IVPUSH SCH (17:25)
[2020-04-23] MEDS: cefTRIAXone 1 GM in Sodium Chloride 0.9% 50 ML IV SCH (18:45)
[2020-04-23] MEDS: Sodium Chloride 0.9% 10 ML Syringe FLUSH PRN ×4 (20:00→22:18)
[2020-04-24] MEDS: Formoterol/Mometasone 200-5 MCG 8.8 GM Inhaler IH SCH (07:40)
[2020-04-24] MEDS ORDERED: Furosemide 20 MG Tab PO SCH (09:00)
[2020-04-24] MEDS ORDERED: Lisinopril 20 MG Tab PO SCH (09:00)
--- NOTE | 2020-04-24 09:22 | PN ---
DATE: 04/24/2020 SUBJECTIVE: The patient is a 75-year-old gentleman who was admitted because of COVID pneumonia and hypoxemia. The patient continues to do well and the patient's oxygen saturation is 93% to 95%, and this has been on room air. The patient mentioned that he is still feeling a little bit fatigued, but he is feeling much better. He denies any chest pain, orthopnea, PND, fever, chills, abdominal pain, or any other complaints. OBJECTIVE: Vital Signs: Blood pressure is 167/86, pulse of 64, respirations of 18, temperature of 97.6, and saturation is 93% on room air. Heart: Regular rate and rhythm. Normal S1 and S2. No gallops. No rubs. Lungs: Equal bilaterally. No crackles. No wheezing. Abdomen: Protuberant, but soft and nontender. Bowel sounds positive. Extremities: Negative for any significant pedal edema. No calf tenderness. MEDICATIONS: Reviewed. PLAN: I am going to increase his lisinopril to 20 mg a day and continue the rest of his management. I am also going to discharge him today. [facility] /[id number]
[2020-04-24] MEDS: amLODIPine 5 MG Tab PO SCH (09:52)
[2020-04-24] MEDS: Enoxaparin 40 MG/0.4 ML Syringe SUBCUT SCH (09:54)
[2020-04-24] MEDS: Albuterol 6.7 GM Inhaler INH SCH (09:56)
--- NOTE | 2020-04-27 08:05 | DISCH ---
FINAL DIAGNOSES: 1. COVID pneumonia. 2. Hypoxemia. 3. Hypokalemia. 4. Hyponatremia and hypochloremia. 5. Hypertension. BRIEF HISTORY OF PRESENT ILLNESS: The patient is a 75-year-old gentleman who was admitted because of increasing shortness of breath, chest tightness, and hypoxemia with saturation 84% with moderate exertion. PERTINENT LAB, X-RAY, AND OTHER TESTS: CAT scan of the chest showed abnormalities consistent with COVID vasculitis and/or viral pneumonia. There are no signs of malignancy or heart failure. Lab workup on 04/21/2020, CBC unremarkable. D-dimer is 479. Comp panel remarkable for potassium of 2.9, sodium 134, chloride of 94. AST is 97, ALT is 119. Lab workup on 04/23/2020 WBC is 3.8, hemoglobin is 15, hematocrit is 42, platelet is 200. Comp panel: Sodium is 136, potassium is 3.6, glucose 116, AST is 54, ALT is 79, total protein of 5.6, and albumin is 2.1. The rest of the panel unremarkable. HOSPITAL COURSE: The patient was admitted to [facility]. He was empirically started on IV antibiotics with azithromycin and ceftriaxone, and also IV dexamethasone and remdesivir. He was resumed on his home medication including lisinopril as well as amlodipine. The patient had a slow improvement, but his oxygen saturation slowly improved and blood pressure was also noted to be elevated and his lisinopril was increased to 20 mg a day. Potassium was also repleted during the hospital stay. Blood cultures came back negative. The rest of the hospital days were unremarkable and the patient was discharged. CONDITION ON DISCHARGE: Improved. He is going to follow up with Dr. Coyle in 7 to 10 days. We will continue with his dexamethasone orally for the next 5 days and also continue with oral azithromycin. He will be continued on his lisinopril 20 mg a day as well as his amlodipine and Lasix. [facility] /[id number]
== END 2020-04-24 13:10 | disposition home or self-care (01) | DRG 177 ==
LOC: DL.ED 11:33 → DL.MS 16:22
PROVIDERS: ADMIT Internal Medicine; ATTEND Internal Medicine
PROC: 8E0ZXY6 Isolation (ICD-10-PCS; principal; 2020-04-21)
PROC: XW033E5 Introduction of Remdesivir Anti-infective into Peripheral Vein, Percutaneous Approach, New Technology Group 5 (ICD-10-PCS; 2020-04-21)
DX: U07.1 COVID-19 (principal); J12.89 Other viral pneumonia; E87.1 Hypo-osmolality and hyponatremia; E87.6 Hypokalemia; E87.8 Other disorders of electrolyte and fluid balance, not elsewhere classified; R09.02 Hypoxemia; H54.7 Unspecified visual loss; I10 Essential (primary) hypertension; K21.9 Gastro-esophageal reflux disease without esophagitis; Z79.899 Other long term (current) drug therapy
CPT/HCPCS: 36415; 71250; 80053; 83605; 84145; 84484; 85025; 85379; 87040; 90653; 93005; 96374; 99284; 99285-25; A9270-GY; G0008; J0456; J0696; J1100; J1650; J2405; J7030; J7050; U0002

== ENCOUNTER 2021-08-16 08:27 | Emergency (ER) | payer MEDICARE, BC ==
[2021-08-16 09:48] LABS: ANION GAP 17.6 mEq/L (7-13); CHLORIDE,CL 101 mmol/L (98-107); SODIUM,NA 140 mmol/L (136-145)
[2021-08-16 09:54] LABS: PTT,PARTIAL THROMBOPLSTIN TIME 24.7 SEC (22.0-34.0)
[2021-08-16] MEDS ORDERED: Magnesium Sulfate/Water 2 GM in Premix Bag 1 BAG IV ONE (10:34)
== END 2021-08-16 10:55 | disposition home or self-care (01) ==
LOC: DL.ED 08:27
DX: R07.89 Other chest pain (principal); S00.81XA Abrasion of other part of head, initial encounter; E80.7 Disorder of bilirubin metabolism, unspecified; R79.0 Abnormal level of blood mineral; Z79.899 Other long term (current) drug therapy; W18.30XA Fall on same level, unspecified, initial encounter
CPT/HCPCS: 36415; 70450; 71045; 80053; 80307; 82150; 83605; 83690; 83735; 83880; 84484; 85025; 85610; 85730; 86140; 93005; 99285-25

== ENCOUNTER → 2021-08-16 08:46 | Emergency (ER) | payer MEDICARE, BC | LOC: DL.ED 08:46 | DX: Z53.8 Procedure and treatment not carried out for other reasons (principal) | CPT/HCPCS: 93010; 99285 ==

== ENCOUNTER 2022-02-01 10:01 | Emergency (ER) | payer MEDICARE, BC ==
[2022-02-01 10:43] LABS: ANION GAP 11.4 mEq/L (7-13)
== END 2022-02-01 12:00 | disposition home or self-care (01) ==
LOC: DL.ED 10:01
DX: R60.0 Localized edema (principal); I10 Essential (primary) hypertension; Z79.899 Other long term (current) drug therapy
CPT/HCPCS: 36415; 71045; 80048; 83880; 85025; 93005; 99284

== ENCOUNTER 2022-06-07 05:58 | Day surgery (SDC) | payer MEDICARE, BC ==
[2022-06-07] MEDS ORDERED: Midazolam 1 MG/ML 2 ML SDV IV ONE ×2 (05:59→07:09)
[2022-06-07] MEDS ORDERED: fentaNYL 100 MCG/2 ML SDV IV ONE ×3 (05:59→07:08)
[2022-06-07] MEDS ORDERED: fentaNYL 100 MCG/2 ML SDV ONE (06:15)
[2022-06-07] MEDS ORDERED: Midazolam 1 MG/ML 2 ML SDV ONE (06:15)
[2022-06-07] MEDS ORDERED: Dextrose 5%-0.45% NaCl 1,000 ML IV SCH (07:00)
[2022-06-07] MEDS ORDERED: Sodium Chloride 0.9% 10 ML Syringe FLUSH PRN (07:00)
[2022-06-07] MEDS ORDERED: Sodium Chloride 0.9% 10 ML Syringe FLUSH SCH (09:00)
== END 2022-06-07 10:00 | disposition home or self-care (01) ==
LOC: DL.ENDO 05:58
PROVIDERS: ATTEND Internal Medicine Gastroenterology
DX: K29.50 Unspecified chronic gastritis without bleeding (principal); K44.9 Diaphragmatic hernia without obstruction or gangrene; K70.30 Alcoholic cirrhosis of liver without ascites; D63.1 Anemia in chronic kidney disease; I12.9 Hypertensive chronic kidney disease with stage 1 through stage 4 chronic kidney disease, or unspecified chronic kidney disease; N18.9 Chronic kidney disease, unspecified; R73.9 Hyperglycemia, unspecified; E53.8 Deficiency of other specified B group vitamins; E83.51 Hypocalcemia; E88.09 Other disorders of plasma-protein metabolism, not elsewhere classified
CPT/HCPCS: 43239; 87077; J2250; J3010; J7042; 88305

== ENCOUNTER 2022-06-18 11:41 | Emergency (ER) | payer MEDICARE, BC ==
[2022-06-18 12:48] LABS: ANION GAP 11.9 mEq/L (7-13); CHLORIDE,CL 103 mmol/L (98-107); SODIUM,NA 137 mmol/L (136-145)
[2022-06-18 12:49] LABS: ESTIMATED GFR 87 mL/min (>=60)
[2022-06-18 13:44] LABS: CORONAVIRUS COVID-19 NAA NEGATIVE (NEGATIVE)
== END 2022-06-18 15:58 ==
LOC: DL.ED 11:41
DX: G45.9 Transient cerebral ischemic attack, unspecified (principal); Z20.822 Contact with and (suspected) exposure to COVID-19
CPT/HCPCS: 0240U; 36415; 70450; 71045; 80053; 81001; 83880; 84484; 85025; 85610; 93005; 99285; C1758

== ENCOUNTER 2022-08-16 06:23 | Day surgery (SDC) | payer MEDICARE, BC ==
[~2022-08-16 06:23] MED LIST changes: +Sodium Chloride 0.9% 10 ML Syringe FLUSH PRN; +Sodium Chloride 0.9% 10 ML Syringe FLUSH SCH; -cefTRIAXone 1 GM in Sodium Chloride 0.9% 50 ML IV SCH
[2022-08-16] MEDS: Dextrose 5%-0.45% NaCl 1,000 ML IV SCH (06:55)
[2022-08-16] MEDS ORDERED: Midazolam 1 MG/ML 2 ML SDV ONE (07:24)
[2022-08-16] MEDS ORDERED: fentaNYL 100 MCG/2 ML SDV ONE (07:25)
[2022-08-16] MEDS: fentaNYL 100 MCG/2 ML SDV IV ONE ×2 (07:30→07:31)
[2022-08-16] MEDS: Midazolam 1 MG/ML 2 ML SDV IV ONE ×3 (07:31→07:40)
== END 2022-08-16 10:02 | disposition home or self-care (01) ==
LOC: DL.ENDO 06:23
PROVIDERS: ATTEND Internal Medicine Gastroenterology
DX: D64.9 Anemia, unspecified (principal); K76.9 Liver disease, unspecified; F10.20 Alcohol dependence, uncomplicated
CPT/HCPCS: 45378; J2250; J3010; J7042

== ENCOUNTER 2022-12-21 14:57 | Emergency (ER) | payer MEDICARE, BC ==
[2022-12-21] MEDS ORDERED: Sodium Chloride 0.9% 10 ML Syringe FLUSH PRN (15:05)
[2022-12-21] MEDS ORDERED: Aspirin 81 MG Tab.Chew PO ONE (15:07)
[2022-12-21 15:18] LABS: HEMATOCRIT 31.3 % (40.0-54.0); HEMOGLOBIN 10.9 g/dL (14.0-18.0); MEAN CORPUSCULAR HEMOGLOBIN 35.4 pg (27.0-34.0); MEAN CORPUSCULAR HGB CONC 34.8 g/dL (33.0-35.0); MEAN CORPUSCULAR VOLUME 101.6 fL (80-100); PLATELET COUNT,PLT 165 10^3/uL (150-450); RED BLOOD CELL COUNT 3.08 10^6/uL (4.6-6.2); WHITE BLOOD CELL COUNT,WBC 6.6 10^3/uL (5.0-10.0)
[2022-12-21 15:23] LABS: BASOPHILS PERCENT AUTO 0.5 % (0.0-1.0); EOSINOPHILS PERCENT AUTO 9.5 % (1.0-3.0); LYMPHOCYTES PERCENT AUTO 22.5 % (20.5-50.1); MONOCYTES PERCENT AUTO 18.6 % (2-8); NEUTROPHILS PERCENT AUTO 48.9 % (42.2-75.2)
[2022-12-21 15:41] LABS: ALBUMIN 2.7 g/dL (3.4-5.0); ANION GAP 14.3 mEq/L (7-13); BILIRUBIN TOTAL 3.2 mg/dL (0.2-1.0); BUN/CREATININE RATIO 11.9 (No establ ref range); C-REACTIVE PROTEIN 0.2 mg/dL (0.0-0.9); CALCIUM 8.6 mg/dL (8.5-10.1); CREATININE 1.01 mg/dL (0.70-1.30); EST CRCL DRUG DOSING (CG) 54.97 mL/min; MAGNESIUM 1.5 mg/dL (1.8-2.4); POTASSIUM,K 3.3 mmol/L (3.5-5.1); PROTEIN TOTAL,TP 6.4 g/dL (6.4-8.2)
[2022-12-21 15:44] LABS: A/G RATIO 0.73; LACTIC ACID 2.7 mmol/L (0.4-2.0)
[2022-12-21 15:55] LABS: BAND PERCENT MAN 1 %; EOSINOPHILS PERCENT MAN 10 % (1-3); LYMPHOCYTES PERCENT MAN 23 % (20-50); MONOCYTES PERCENT MAN 10 % (2-8); SEG NEUTROPHILS PERCENT MAN 56 % (42-75)
[2022-12-21] MEDS ORDERED: Aluminum Hydroxide/Magnesium Hydroxide/Simethicone Susp 30 ML Cup PO ONE (16:51)
[2022-12-21] MEDS ORDERED: Lidocaine 2% Viscous Solution 15 ML UD PO ONE (16:51)
[2022-12-21 17:52] LABS: FOLIC ACID > 20.0 ng/mL (8.6-58.9)
== END 2022-12-21 17:57 | disposition home or self-care (01) ==
LOC: DL.ED 14:57
DX: K21.9 Gastro-esophageal reflux disease without esophagitis (principal); I11.0 Hypertensive heart disease with heart failure; I50.9 Heart failure, unspecified; E78.5 Hyperlipidemia, unspecified; Z86.16 Personal history of COVID-19; Z79.899 Other long term (current) drug therapy
CPT/HCPCS: 36415; 71045; 80053; 80307; 82607; 82746; 83605; 83735; 83880; 84484; 85025; 86140; 93005; 93010; 99284; 99285; A9270; J3490

== ENCOUNTER 2023-11-29 18:44 | Inpatient (IN) | payer MEDICARE, BC ==
[2023-11-29] MEDS ORDERED: Sodium Chloride 0.9% 10 ML Syringe FLUSH PRN (19:16)
[2023-11-29] MEDS ORDERED: Morphine 2 MG/ML SYRINGE IVPUSH PRN (19:16)
[2023-11-29] MEDS ORDERED: Ondansetron 4 MG Tab.DIS PO PRN (19:16)
[2023-11-29] MEDS ORDERED: Acetaminophen 325 MG Tab PO PRN (19:16)
[2023-11-29] MEDS ORDERED: Lactulose Soln 10 GM/15 ML 30 ML UD Cup PO PRN (19:27)
[2023-11-29 19:34] LABS: BASOPHILS PERCENT AUTO 0.1 % (0.0-1.0); EOSINOPHILS PERCENT AUTO 0.2 % (1.0-3.0); HEMATOCRIT 36.9 % (40.0-54.0); HEMOGLOBIN 12.9 g/dL (14.0-18.0); LYMPHOCYTES PERCENT AUTO 6.1 % (20.5-50.1); MEAN CORPUSCULAR HEMOGLOBIN 36.2 pg (27.0-34.0); MEAN CORPUSCULAR VOLUME 103.7 fL (80-100); MONOCYTES PERCENT AUTO 10.5 % (2-8); NEUTROPHILS PERCENT AUTO 83.1 % (42.2-75.2); PLATELET COUNT,PLT 164 10^3/uL (150-450); RED BLOOD CELL COUNT 3.56 10^6/uL (4.6-6.2); WHITE BLOOD CELL COUNT,WBC 12.8 10^3/uL (5.0-10.0)
[2023-11-29 19:56] LABS: ALANINE AMINOTRANSFERASE,ALT 25 U/L (16-63); ALBUMIN 2.7 g/dL (3.4-5.0); ALKALINE PHOSPHATASE 90 U/L (46-116); ANION GAP 12.1 mEq/L (7-13); ASPARTATE AMNIOTRANSFERASE,AST 31 U/L (15-37); BILIRUBIN TOTAL 4.7 mg/dL (0.2-1.0); BLOOD UREA NITROGEN,BUN 30 mg/dL (7-18); BUN/CREATININE RATIO 20.5 (No establ ref range); CALCIUM 9.3 mg/dL (8.5-10.1); CARBON DIOXIDE,CO2 27 mmol/L (21-32); CHLORIDE,CL 97 mmol/L (98-107); CREATININE 1.46 mg/dL (0.70-1.30); GLUCOSE RANDOM 96 mg/dL (70-99); POTASSIUM,K 4.1 mmol/L (3.5-5.1); PROTEIN TOTAL,TP 7.2 g/dL (6.4-8.2); SODIUM,NA 132 mmol/L (136-145)
[2023-11-29 19:58] LABS: ESTIMATED GFR 50 mL/min (>=60)
[2023-11-29 19:59] LABS: B-TYPE NATRIURETIC PEPTIDE,BNP 47 pg/ml (0-100); INR 1.3 (0.9-1.2); PROTHROMBIN TIME 12.9 SEC (9.0-12.0)
[2023-11-29] MEDS: Warfarin 5 MG Tab PO SCH (21:18)
[2023-11-29] MEDS: Enoxaparin 60 MG/0.6 ML Syringe SUBCUT SCH (21:24)
[2023-11-29] MEDS: Acetaminophen/oxyCODONE 325-5 MG Tab PO PRN (21:24)
[2023-11-29] MEDS: atorvaSTATin 20 MG Tab PO SCH (22:46)
[2023-11-29] MEDS: Spironolactone 25 MG Tab PO SCH (22:46)
[2023-11-30] MEDS: Folic Acid 1 MG Tab PO SCH (10:24)
[2023-11-30] MEDS: Thiamine 100 MG Tab PO SCH (10:24)
[2023-11-30] MEDS: Furosemide 40 MG Tab PO SCH (10:25)
[2023-11-30 11:12] LABS: APPEARANCE,URINE CLEAR (CLEAR); BILIRUBIN,URINE NEGATIVE (NEGATIVE); COLOR,URINE DARK YELLOW (YELLOW); GLUCOSE,URINE NEGATIVE (NEGATIVE); KETONES,URINE NEGATIVE (NEGATIVE); LEUKOCYTE ESTERASE,URINE NEGATIVE (NEGATIVE); NITRITE,URINE NEGATIVE (NEGATIVE); OCCULT BLOOD,URINE NEGATIVE (NEGATIVE); PH,URINE 5.5 (5.0-9.0); PROTEIN,URINE NEGATIVE (NEGATIVE)
[2023-11-30 13:58] LABS: RBC,URINE NOT SEEN /HPF (0-5); WBC,URINE NOT SEEN /HPF (0-5/HPF)
[2023-11-30 13:59] LABS: BACTERIA,URINE RARE /HPF (0-FEW/HPF); EPITHELIAL CELLS,URINE RARE /HPF (NOT SEEN)
[2023-11-30] MEDS: Acetaminophen 325 MG Tab PO PRN (17:58)
[2023-11-30] MEDS: Sodium Chloride 0.9% 1,000 ML IV SCH (17:59)
[2023-11-30 19:44] LABS: INR 1.3 (0.9-1.2)
[2023-12-01 06:13] LABS: BASOPHILS PERCENT AUTO 0.3 % (0.0-1.0); EOSINOPHILS PERCENT AUTO 5.2 % (1.0-3.0); HEMOGLOBIN 11.5 g/dL (14.0-18.0); LYMPHOCYTES PERCENT AUTO 18.6 % (20.5-50.1); MEAN CORPUSCULAR HEMOGLOBIN 36.7 pg (27.0-34.0); MEAN CORPUSCULAR HGB CONC 34.8 g/dL (33.0-35.0); MEAN CORPUSCULAR VOLUME 105.4 fL (80-100); MONOCYTES PERCENT AUTO 17.1 % (2-8); NEUTROPHILS PERCENT AUTO 58.8 % (42.2-75.2); PLATELET COUNT,PLT 163 10^3/uL (150-450); RED BLOOD CELL COUNT 3.13 10^6/uL (4.6-6.2)
[2023-12-01 06:33] LABS: INR 1.3 (0.9-1.2); PROTHROMBIN TIME 13.4 SEC (9.0-12.0)
[2023-12-01 06:39] LABS: ANION GAP 9.7 mEq/L (7-13); CALCIUM 8.4 mg/dL (8.5-10.1); CREATININE 1.45 mg/dL (0.70-1.30); EST CRCL DRUG DOSING (CG) 39.11 mL/min; POTASSIUM,K 3.7 mmol/L (3.5-5.1)
[2023-12-01] MEDS: Docusate Sodium 100 MG Cap PO PRN (08:46)
[2023-12-01] MEDS: cefTRIAXone 1 GM Vial IVPUSH SCH (08:59)
[2023-12-02 06:24] LABS: BASOPHILS PERCENT AUTO 0.5 % (0.0-1.0); EOSINOPHILS PERCENT AUTO 7.7 % (1.0-3.0); HEMATOCRIT 34.3 % (40.0-54.0); LYMPHOCYTES PERCENT AUTO 26.4 % (20.5-50.1); MEAN CORPUSCULAR HEMOGLOBIN 36.7 pg (27.0-34.0); MEAN CORPUSCULAR VOLUME 104.9 fL (80-100); MONOCYTES PERCENT AUTO 17.2 % (2-8); NEUTROPHILS PERCENT AUTO 48.2 % (42.2-75.2); PLATELET COUNT,PLT 182 10^3/uL (150-450); RED BLOOD CELL COUNT 3.27 10^6/uL (4.6-6.2); WHITE BLOOD CELL COUNT,WBC 6.4 10^3/uL (5.0-10.0)
[2023-12-02 06:41] LABS: ANION GAP 9.1 mEq/L (7-13); CALCIUM 8.4 mg/dL (8.5-10.1); CREATININE 1.3 mg/dL (0.70-1.30); EST CRCL DRUG DOSING (CG) 43.62 mL/min; POTASSIUM,K 4.1 mmol/L (3.5-5.1)
[2023-12-02 06:50] LABS: INR 1.4 (0.9-1.2); PROTHROMBIN TIME 14.6 SEC (9.0-12.0)
[2023-12-03 07:02] LABS: PROTHROMBIN TIME 19.6 SEC (9.0-12.0)
[2023-12-04 06:13] LABS: BASOPHILS PERCENT AUTO 0.3 % (0.0-1.0); EOSINOPHILS PERCENT AUTO 7.9 % (1.0-3.0); HEMATOCRIT 34.3 % (40.0-54.0); LYMPHOCYTES PERCENT AUTO 26.1 % (20.5-50.1); MEAN CORPUSCULAR HEMOGLOBIN 36.8 pg (27.0-34.0); MEAN CORPUSCULAR VOLUME 105.2 fL (80-100); MONOCYTES PERCENT AUTO 18.4 % (2-8); NEUTROPHILS PERCENT AUTO 47.3 % (42.2-75.2); PLATELET COUNT,PLT 177 10^3/uL (150-450); RED BLOOD CELL COUNT 3.26 10^6/uL (4.6-6.2); WHITE BLOOD CELL COUNT,WBC 5.9 10^3/uL (5.0-10.0)
[2023-12-04 06:25] LABS: ANION GAP 13.1 mEq/L (7-13); CALCIUM 8.8 mg/dL (8.5-10.1); CREATININE 1.25 mg/dL (0.70-1.30); EST CRCL DRUG DOSING (CG) 45.37 mL/min; POTASSIUM,K 4.1 mmol/L (3.5-5.1)
[2023-12-04 06:27] LABS: INR 2.7 (0.9-1.2); PROTHROMBIN TIME 26.4 SEC (9.0-12.0)
[2023-12-04] MEDS ORDERED: Apixaban 5 MG Tab PO SCH (21:00)
== END 2023-12-04 15:45 | disposition home or self-care (01) | DRG 300 ==
LOC: UNDOADMIN 18:44 → DL.MS 18:44
PROVIDERS: ADMIT Internal Medicine; ATTEND Student in an Organized Health Care Education/Training Program
DX: I82.442 Acute embolism and thrombosis of left tibial vein (principal); E87.1 Hypo-osmolality and hyponatremia; L03.116 Cellulitis of left lower limb; I10 Essential (primary) hypertension; Z66 Do not resuscitate; R60.9 Edema, unspecified; Z87.891 Personal history of nicotine dependence; Z79.899 Other long term (current) drug therapy; Z79.82 Long term (current) use of aspirin
CPT/HCPCS: 36415; 71045; 80048; 80053; 81001; 82140; 83880; 85025; 85610; 97165-GO; A9270-GY; J0696; J1650; J7030

== ENCOUNTER 2023-12-23 09:13 | Observation (INO) | payer MEDICARE, BC ==
[2023-12-23 10:17] LABS: BASOPHILS PERCENT AUTO 0.4 % (0.0-1.0); EOSINOPHILS PERCENT AUTO 7.9 % (1.0-3.0); HEMATOCRIT 37.4 % (40.0-54.0); HEMOGLOBIN 13.3 g/dL (14.0-18.0); LYMPHOCYTES PERCENT AUTO 25.8 % (20.5-50.1); MEAN CORPUSCULAR HEMOGLOBIN 36.2 pg (27.0-34.0); MEAN CORPUSCULAR HGB CONC 35.6 g/dL (33.0-35.0); MEAN CORPUSCULAR VOLUME 101.9 fL (80-100); MONOCYTES PERCENT AUTO 20.8 % (2-8); NEUTROPHILS PERCENT AUTO 45.1 % (42.2-75.2); PLATELET COUNT,PLT 173 10^3/uL (150-450); RED BLOOD CELL COUNT 3.67 10^6/uL (4.6-6.2); WHITE BLOOD CELL COUNT,WBC 5.3 10^3/uL (5.0-10.0)
[2023-12-23 10:29] LABS: ALBUMIN 3.1 g/dL (3.4-5.0); BILIRUBIN TOTAL 2.4 mg/dL (0.2-1.0); CALCIUM 9.7 mg/dL (8.5-10.1); CREATININE 1.83 mg/dL (0.70-1.30); EST CRCL DRUG DOSING (CG) 29.87 mL/min; MAGNESIUM 1.7 mg/dL (1.8-2.4); PROTEIN TOTAL,TP 7.7 g/dL (6.4-8.2)
[2023-12-23 10:30] LABS: A/G RATIO 0.67
[2023-12-23] MEDS ORDERED: Sodium Chloride 0.9% 10 ML Syringe FLUSH PRN (10:39)
[2023-12-23 10:49] LABS: APPEARANCE,URINE CLEAR (CLEAR); BILIRUBIN,URINE NEGATIVE (NEGATIVE); COLOR,URINE YELLOW (YELLOW); GLUCOSE,URINE NEGATIVE (NEGATIVE); KETONES,URINE NEGATIVE (NEGATIVE); LEUKOCYTE ESTERASE,URINE NEGATIVE (NEGATIVE); NITRITE,URINE NEGATIVE (NEGATIVE); OCCULT BLOOD,URINE TRACE-INTACT (NEGATIVE); PROTEIN,URINE NEGATIVE (NEGATIVE); UROBILINOGEN,URINE 0.2 mg/dL (0.2-1.0)
[2023-12-23] MEDS: Sodium Chloride 0.9% 1,000 ML IV ONE (10:56)
[2023-12-23] MEDS: Magnesium Sulfate/Water 2 GM in Premix Bag 1 BAG IV ONE (10:56)
[2023-12-23 10:58] LABS: PROTHROMBIN TIME 92.7 SEC (9.0-12.0); PTT,PARTIAL THROMBOPLSTIN TIME 69.1 SEC (22.0-34.0)
[2023-12-23 11:00] LABS: INR 10.4 (0.9-1.2)
[2023-12-23 11:06] LABS: BACTERIA,URINE FEW /HPF (0-FEW/HPF); EPITHELIAL CELLS,URINE RARE /HPF (NOT SEEN); MUCUS,URINE FEW /LPF (NOT SEEN); WBC,URINE 0-5 /HPF (0-5/HPF)
[2023-12-23] MEDS: Oxymetazoline 0.05% Nasal Spray 30 ML Bottle NAS ONE (11:32)
[2023-12-23] MEDS: EPINEPHrine Nasal Soln 30 MG/30 ML Bottle NAS ONE (11:32)
[2023-12-23] MEDS: Phytonadione 10 MG in Sodium Chloride 0.9% 50 ML IV ONE (11:52)
[2023-12-23] MEDS ORDERED: HYDROmorphone 0.5 MG/0.5 ML Syringe IVPUSH PRN (16:46)
[2023-12-23] MEDS ORDERED: Albuterol/Ipratropium 3.0-0.5 MG/3 ML Neb Soln NEB PRN (16:46)
[2023-12-23] MEDS ORDERED: Magnesium Hydroxide 400 MG/5 ML Susp 30 ML Cup PO PRN (16:46)
[2023-12-23] MEDS ORDERED: Sennosides/Docusate Sodium 50-8.6 MG Tab PO PRN (16:46)
[2023-12-23] MEDS ORDERED: Promethazine 25 MG/ML SDV IM PRN (16:46)
[2023-12-23] MEDS ORDERED: Naloxone 2 MG/2 ML Syringe IVPUSH PRN (16:46)
[2023-12-23] MEDS ORDERED: Polyethylene Glycol 3350 Powder 17 GM Packet PO PRN (16:46)
[2023-12-23] MEDS ORDERED: Metoprolol Tartrate 5 MG/5 ML SDV IVPUSH PRN (16:53)
[2023-12-23] MEDS ORDERED: hydrALAZINE 20 MG/ML SDV IVPUSH PRN (16:53)
[2023-12-23] MEDS: Melatonin 3 MG Tab PO PRN (21:10)
[2023-12-23] MEDS: Acetaminophen 325 MG Tab PO PRN (21:10)
[2023-12-24 06:33] LABS: BASOPHILS PERCENT AUTO 0.7 % (0.0-1.0); EOSINOPHILS PERCENT AUTO 12.1 % (1.0-3.0); LYMPHOCYTES PERCENT AUTO 21.1 % (20.5-50.1); MEAN CORPUSCULAR HEMOGLOBIN 36.6 pg (27.0-34.0); MEAN CORPUSCULAR HGB CONC 35.3 g/dL (33.0-35.0); MEAN CORPUSCULAR VOLUME 103.7 fL (80-100); MONOCYTES PERCENT AUTO 19.7 % (2-8); NEUTROPHILS PERCENT AUTO 46.4 % (42.2-75.2); PLATELET COUNT,PLT 165 10^3/uL (150-450); RED BLOOD CELL COUNT 3.28 10^6/uL (4.6-6.2); WHITE BLOOD CELL COUNT,WBC 5.9 10^3/uL (5.0-10.0)
[2023-12-24 07:13] LABS: ALBUMIN 2.6 g/dL (3.4-5.0); ANION GAP 14.4 mEq/L (7-13); BILIRUBIN TOTAL 2.9 mg/dL (0.2-1.0); CALCIUM 9.3 mg/dL (8.5-10.1); CREATININE 1.77 mg/dL (0.70-1.30); EST CRCL DRUG DOSING (CG) 30.89 mL/min; MAGNESIUM 2.1 mg/dL (1.8-2.4); POTASSIUM,K 4.4 mmol/L (3.5-5.1); PROTEIN TOTAL,TP 6.6 g/dL (6.4-8.2)
[2023-12-24 07:20] LABS: A/G RATIO 0.65
[2023-12-24 07:23] LABS: INR 3.9 (0.9-1.2); PROTHROMBIN TIME 36.9 SEC (9.0-12.0)
[2023-12-24] MEDS: Thiamine 100 MG Tab PO SCH (08:42)
[2023-12-24] MEDS: Pantoprazole 40 MG Tab.CR PO SCH (08:43)
[2023-12-24] MEDS: Phytonadione 5 MG in Sodium Chloride 0.9% 50 ML IV ONE (09:25)
[2023-12-24] MEDS: Dabigatran 75 MG Cap PO SCH (09:25)
[2023-12-24] MEDS: Midodrine 5 MG Tab PO SCH (09:26)
[2023-12-24] MEDS: Sodium Chloride 0.9% 1,000 ML IV SCH (09:36)
[2023-12-25 06:46] LABS: BASOPHILS PERCENT AUTO 0.7 % (0.0-1.0); EOSINOPHILS PERCENT AUTO 9.9 % (1.0-3.0); HEMATOCRIT 35.5 % (40.0-54.0); HEMOGLOBIN 12.4 g/dL (14.0-18.0); LYMPHOCYTES PERCENT AUTO 25.5 % (20.5-50.1); MEAN CORPUSCULAR HEMOGLOBIN 36.4 pg (27.0-34.0); MEAN CORPUSCULAR HGB CONC 34.9 g/dL (33.0-35.0); MEAN CORPUSCULAR VOLUME 104.1 fL (80-100); MONOCYTES PERCENT AUTO 16.4 % (2-8); NEUTROPHILS PERCENT AUTO 47.5 % (42.2-75.2); PLATELET COUNT,PLT 167 10^3/uL (150-450); RED BLOOD CELL COUNT 3.41 10^6/uL (4.6-6.2); WHITE BLOOD CELL COUNT,WBC 5.7 10^3/uL (5.0-10.0)
[2023-12-25 06:57] LABS: INR 3.8 (0.9-1.2); PROTHROMBIN TIME 35.8 SEC (9.0-12.0)
[2023-12-25 07:05] LABS: ALBUMIN 2.6 g/dL (3.4-5.0); ANION GAP 15.6 mEq/L (7-13); BILIRUBIN TOTAL 2.4 mg/dL (0.2-1.0); BUN/CREATININE RATIO 24.5 (No establ ref range); CALCIUM 9.2 mg/dL (8.5-10.1); CREATININE 1.55 mg/dL (0.70-1.30); EST CRCL DRUG DOSING (CG) 35.27 mL/min; MAGNESIUM 1.7 mg/dL (1.8-2.4); POTASSIUM,K 4.6 mmol/L (3.5-5.1); PROTEIN TOTAL,TP 6.6 g/dL (6.4-8.2)
[2023-12-25 07:11] LABS: A/G RATIO 0.65
[2023-12-25] MEDS: Magnesium Sulfate/Water 2 GM in Premix Bag 1 BAG IV ONE (12:34)
[2023-12-25] MEDS: Phytonadione 10 MG in Sodium Chloride 0.9% 50 ML IV ONE (14:32)
[2023-12-25] MEDS: Magnesium Oxide 400 MG Tab PO ONE ×2 (14:48→14:49)
[2023-12-25] MEDS: Ondansetron 4 MG/2 ML SDV IVPUSH PRN (15:08)
== END 2023-12-25 16:25 | disposition home or self-care (01) ==
LOC: DL.ED 09:13 → DL.MS 12:02 → UNDOADMOB 12:02 → DL.MS 12-24 13:12
PROVIDERS: ADMIT Internal Medicine; ATTEND Internal Medicine
DX: D68.9 Coagulation defect, unspecified (principal); I10 Essential (primary) hypertension; E78.5 Hyperlipidemia, unspecified; K21.9 Gastro-esophageal reflux disease without esophagitis; Z87.891 Personal history of nicotine dependence; Z79.899 Other long term (current) drug therapy
CPT/HCPCS: 36415; 70450; 71045; 80053; 81001; 83735; 84484; 85025; 85610; 85730; 93005; 93010; 96361; 96365; 96366; 96368; 96375; 99284; 99285; A9270; G0378; J2405; J3430; J3475; J3490; J7030

== ENCOUNTER 2024-03-02 10:02 | Emergency (ER) | payer MEDICARE, BC ==
[2024-03-02] MEDS: Sodium Chloride 0.9% 1,000 ML IV ONE (10:00)
[2024-03-02] MEDS: Iopamidol 612 MG/ML 100 ML Bottle IVPUSH ONE (10:19)
[2024-03-02 10:34] LABS: HEMATOCRIT 35.1 % (40.0-54.0); HEMOGLOBIN 12.1 g/dL (14.0-18.0); MEAN CORPUSCULAR HEMOGLOBIN 35.1 pg (27.0-34.0); MEAN CORPUSCULAR HGB CONC 34.5 g/dL (33.0-35.0); MEAN CORPUSCULAR VOLUME 101.7 fL (80-100); PLATELET COUNT,PLT 176 10^3/uL (150-450); RED BLOOD CELL COUNT 3.45 10^6/uL (4.6-6.2); WHITE BLOOD CELL COUNT,WBC 19.3 10^3/uL (5.0-10.0)
[2024-03-02 10:34] LABS: APPEARANCE,URINE CLEAR (CLEAR); BILIRUBIN,URINE NEGATIVE (NEGATIVE); COLOR,URINE YELLOW (YELLOW); GLUCOSE,URINE NEGATIVE (NEGATIVE); KETONES,URINE NEGATIVE (NEGATIVE); LEUKOCYTE ESTERASE,URINE NEGATIVE (NEGATIVE); NITRITE,URINE NEGATIVE (NEGATIVE); OCCULT BLOOD,URINE SMALL (NEGATIVE); PH,URINE 5.5 (5.0-9.0); PROTEIN,URINE NEGATIVE (NEGATIVE)
[2024-03-02 10:38] LABS: BASOPHILS PERCENT AUTO 0.1 % (0.0-1.0); LYMPHOCYTES PERCENT AUTO 2.3 % (20.5-50.1); MONOCYTES PERCENT AUTO 5.7 % (2-8); NEUTROPHILS PERCENT AUTO 91.9 % (42.2-75.2)
[2024-03-02 10:43] LABS: ALANINE AMINOTRANSFERASE,ALT 21 U/L (16-63); ALBUMIN 2.8 g/dL (3.4-5.0); ALKALINE PHOSPHATASE 89 U/L (46-116); ANION GAP 13.3 mEq/L (7-13); ASPARTATE AMNIOTRANSFERASE,AST 38 U/L (15-37); BILIRUBIN TOTAL 3.5 mg/dL (0.2-1.0); BLOOD UREA NITROGEN,BUN 32 mg/dL (7-18); BUN/CREATININE RATIO 17.4 (No establ ref range); CALCIUM 8.9 mg/dL (8.5-10.1); CARBON DIOXIDE,CO2 24 mmol/L (21-32); CHLORIDE,CL 101 mmol/L (98-107); CREATINE KINASE,CK 444 U/L (39-308); CREATININE 1.84 mg/dL (0.70-1.30); GLUCOSE RANDOM 92 mg/dL (70-99); LIPASE 14 U/L (16-77); MAGNESIUM 1.6 mg/dL (1.8-2.4); POTASSIUM,K 4.3 mmol/L (3.5-5.1); PROTEIN TOTAL,TP 6.9 g/dL (6.4-8.2); SODIUM,NA 134 mmol/L (136-145)
[2024-03-02 10:45] LABS: A/G RATIO 0.68; ESTIMATED GFR 37 mL/min (>=60); ETHANOL BLOOD MEDICAL < 3 mg/dL (0)
[2024-03-02 10:47] LABS: BACTERIA,URINE FEW /HPF (0-FEW/HPF); EPITHELIAL CELLS,URINE OCCASIONAL /HPF (NOT SEEN); MUCUS,URINE FEW /LPF (NOT SEEN); RBC,URINE 0-5 /HPF (0-5); WBC,URINE 0-5 /HPF (0-5/HPF)
[2024-03-02 10:49] LABS: LYMPHOCYTES PERCENT MAN 3 % (20-50); MONOCYTES PERCENT MAN 6 % (2-8); SEG NEUTROPHILS PERCENT MAN 91 % (42-75)
[2024-03-02 10:53] LABS: B-TYPE NATRIURETIC PEPTIDE,BNP 484 pg/ml (0-100)
[2024-03-02 10:55] LABS: INR 1.2 (0.9-1.2); PROTHROMBIN TIME 12.1 SEC (9.0-12.0); PTT,PARTIAL THROMBOPLSTIN TIME 26.3 SEC (22.0-34.0)
[2024-03-02 11:03] LABS: LACTIC ACID 3.6 mmol/L (0.4-2.0)
[2024-03-02] MEDS: Piperacillin/Tazobactam 3.375 GM in Sodium Chloride 0.9% 100 ML IV ONE (11:12)
[2024-03-02 11:15] LABS: BASE EXCESS VENOUS -4.5 mmol/l ((-2)-(+3)); BICARBONATE,VENOUS 19 mmol/l (19-25); O2 DELIVERY DEVICE BIPAP; O2 SATURATION VENOUS 80 % (60-80); PCO2 VENOUS 30 mmHg (41-51); PH,VENOUS 7.41 (7.31-7.41); PO2 VENOUS 48 mmHg (35-42)
[2024-03-02] MEDS ORDERED: Heparin Sodium/0.45% NaCl 25,000 UNITS/500 ML BAG IV SCH (12:30)
[2024-03-02] MEDS: Heparin Sodium 5,000 Units/ML Vial IVPUSH ONE (12:48)
[2024-03-02] MEDS: Heparin Sodium/0.45% NaCl 25,000 UNITS/500 ML BAG IV SCH (12:53)
== END 2024-03-02 13:13 ==
LOC: DL.ED 10:02
DX: A41.9 Sepsis, unspecified organism (principal); I21.4 Non-ST elevation (NSTEMI) myocardial infarction; M62.82 Rhabdomyolysis; R41.0 Disorientation, unspecified; I10 Essential (primary) hypertension; K21.9 Gastro-esophageal reflux disease without esophagitis; Z86.16 Personal history of COVID-19; Z86.73 Personal history of transient ischemic attack (TIA), and cerebral infarction without residual deficits; Z79.899 Other long term (current) drug therapy
CPT/HCPCS: 36415; 70450; 71045; 71260; 72125; 74177; 80053; 80307; 81001; 82140; 82550; 82803; 82947; 83605; 83690; 83735; 83880; 84484; 85025; 85610; 85730; 87040; 87804; 93005; 96365; 96375; 99285-25; J1644; J2543; J3490; J7030; Q9967; U0002

== ENCOUNTER 2024-03-14 09:59 | Inpatient (IN) | payer MEDICARE, BC ==
[2024-03-14] MEDS ORDERED: Ondansetron 4 MG Tab.DIS PO PRN (12:09)
[2024-03-14] MEDS ORDERED: Melatonin 3 MG Tab PO PRN (12:09)
[2024-03-14] MEDS ORDERED: Albuterol/Ipratropium 3.0-0.5 MG/3 ML Neb Soln NEB PRN (12:09)
[2024-03-14] MEDS ORDERED: Acetaminophen 325 MG Tab PO PRN (12:09)
[2024-03-14] MEDS: Sucralfate 1 GM Tab PO SCH (17:56)
[2024-03-14] MEDS: Pantoprazole 40 MG Tab.CR PO SCH (20:28)
[2024-03-14] MEDS: Midodrine 5 MG Tab PO SCH (20:28)
[2024-03-14] MEDS: Lactulose Soln 10 GM/15 ML 30 ML UD Cup PO SCH (20:32)
[2024-03-15 06:37] LABS: HEMATOCRIT 24.4 % (40.0-54.0); HEMOGLOBIN 7.9 g/dL (14.0-18.0); MEAN CORPUSCULAR HEMOGLOBIN 34.2 pg (27.0-34.0); MEAN CORPUSCULAR HGB CONC 32.4 g/dL (33.0-35.0); MEAN CORPUSCULAR VOLUME 105.6 fL (80-100); PLATELET COUNT,PLT 253 10^3/uL (150-450); RED BLOOD CELL COUNT 2.31 10^6/uL (4.6-6.2); WHITE BLOOD CELL COUNT,WBC 9.2 10^3/uL (5.0-10.0)
[2024-03-15 06:50] LABS: BASOPHILS PERCENT AUTO 2.6 % (0.0-1.0); EOSINOPHILS PERCENT AUTO 3.7 % (1.0-3.0); LYMPHOCYTES PERCENT AUTO 19.6 % (20.5-50.1); MONOCYTES PERCENT AUTO 14.8 % (2-8); NEUTROPHILS PERCENT AUTO 59.3 % (42.2-75.2)
[2024-03-15 06:52] LABS: ALBUMIN 1.8 g/dL (3.4-5.0); BILIRUBIN TOTAL 1.6 mg/dL (0.2-1.0); BUN/CREATININE RATIO 9.9 (No establ ref range); CALCIUM 8.7 mg/dL (8.5-10.1); CREATININE 1.21 mg/dL (0.70-1.30); EST CRCL DRUG DOSING (CG) 44.47 mL/min; INR 1.4 (0.9-1.2); MAGNESIUM 1.3 mg/dL (1.8-2.4); PROTEIN TOTAL,TP 5.8 g/dL (6.4-8.2); PROTHROMBIN TIME 13.7 SEC (9.0-12.0); PTT,PARTIAL THROMBOPLSTIN TIME 25.4 SEC (22.0-34.0)
[2024-03-15 06:59] LABS: A/G RATIO 0.45
[2024-03-15 07:52] LABS: BAND PERCENT MAN 4 %; EOSINOPHILS PERCENT MAN 4 % (1-3); LYMPHOCYTES PERCENT MAN 16 % (20-50); MONOCYTES PERCENT MAN 10 % (2-8); SEG NEUTROPHILS PERCENT MAN 65 % (42-75)
[2024-03-15] MEDS: Thiamine 100 MG Tab PO SCH (10:03)
[2024-03-15] MEDS: Furosemide 20 MG Tab PO SCH (10:04)
[2024-03-15] MEDS: Folic Acid 1 MG Tab PO SCH (10:05)
[2024-03-15] MEDS: Pantoprazole 40 MG Tab.CR PO SCH (10:07)
[2024-03-15] MEDS: Spironolactone 25 MG Tab PO SCH (10:07)
[2024-03-17] MEDS: Midodrine 5 MG Tab PO ONE (10:53)
[2024-03-17] MEDS: Magnesium Oxide 400 MG Tab PO SCH (17:42)
[2024-03-18 07:01] LABS: BASOPHILS PERCENT AUTO 1.7 % (0.0-1.0); HEMATOCRIT 23.8 % (40.0-54.0); LYMPHOCYTES PERCENT AUTO 25.6 % (20.5-50.1); MEAN CORPUSCULAR HEMOGLOBIN 34.3 pg (27.0-34.0); MEAN CORPUSCULAR HGB CONC 33.6 g/dL (33.0-35.0); MEAN CORPUSCULAR VOLUME 102.1 fL (80-100); MONOCYTES PERCENT AUTO 17.6 % (2-8); NEUTROPHILS PERCENT AUTO 51.1 % (42.2-75.2); PLATELET COUNT,PLT 267 10^3/uL (150-450); RED BLOOD CELL COUNT 2.33 10^6/uL (4.6-6.2); WHITE BLOOD CELL COUNT,WBC 8.5 10^3/uL (5.0-10.0)
[2024-03-18 07:38] LABS: A/G RATIO 0.44; ALBUMIN 1.9 g/dL (3.4-5.0); ANION GAP 12.4 mEq/L (7-13); BILIRUBIN TOTAL 1.2 mg/dL (0.2-1.0); BUN/CREATININE RATIO 15.2 (No establ ref range); CREATININE 1.38 mg/dL (0.70-1.30); EST CRCL DRUG DOSING (CG) 38.99 mL/min; MAGNESIUM 1.2 mg/dL (1.8-2.4); POTASSIUM,K 3.4 mmol/L (3.5-5.1); PROTEIN TOTAL,TP 6.2 g/dL (6.4-8.2)
[2024-03-18] MEDS: Magnesium Sulfate/Water Premix 2 GM in Premix Bag 1 BAG IV ONE (08:37)
[2024-03-18] MEDS: Magnesium Oxide 400 MG Tab PO SCH (09:45)
[2024-03-18] MEDS: Midodrine 5 MG Tab PO SCH (11:08)
[2024-03-18] MEDS: Ascorbic Acid 500 MG Tab PO SCH (11:08)
[2024-03-18] MEDS: Iron Polysaccharides Complex 150 MG Cap PO SCH (11:09)
[2024-03-18] MEDS: Potassium Chloride 10% 20 MEQ/15 ML Soln 15 ML UD Cup PO SCH (11:10)
[2024-03-19] MEDS: Spironolactone 25 MG Tab PO SCH (09:44)
[2024-03-19] MEDS: Acetaminophen/HYDROcodone 325-5 MG Tab PO PRN (20:01)
[2024-03-20] MEDS ORDERED: Menthol 10%/Methyl Salicylate 15% 85 GM Tube TOP PRN (12:00)
[2024-03-21] MEDS: Sucralfate Suspension 1 GM/10 ML Cup PO SCH (21:31)
[2024-03-25 06:35] LABS: ALBUMIN 2.1 g/dL (3.4-5.0); ANION GAP 10.1 mEq/L (7-13); BILIRUBIN TOTAL 1.1 mg/dL (0.2-1.0); BUN/CREATININE RATIO 18.8 (No establ ref range); CALCIUM 9.4 mg/dL (8.5-10.1); CREATININE 1.44 mg/dL (0.70-1.30); EST CRCL DRUG DOSING (CG) 37.37 mL/min; MAGNESIUM 1.5 mg/dL (1.8-2.4); POTASSIUM,K 4.1 mmol/L (3.5-5.1); PROTEIN TOTAL,TP 6.8 g/dL (6.4-8.2)
[2024-03-25 06:36] LABS: A/G RATIO 0.45
[2024-03-25] MEDS: Magnesium Oxide 400 MG Tab PO SCH (14:58)
[2024-03-26] MEDS ORDERED: Furosemide 20 MG Tab PO SCH (09:00)
[2024-03-28] MEDS: Furosemide 20 MG Tab PO SCH (11:17)
[2024-03-29] MEDS: FLU (Fluad Triv) TS24-25 (65UP)/MF59C/PF 45 MCG/0.5 ML Syringe IM ONE (10:59)
== END 2024-03-29 11:25 | disposition home or self-care (01) | DRG 947 ==
LOC: UNDOADMIN 12:09 → DL.MS 12:09
PROVIDERS: ADMIT Internal Medicine; ATTEND Internal Medicine
PROC: 3E0234Z Introduction of Serum, Toxoid and Vaccine into Muscle, Percutaneous Approach (ICD-10-PCS; principal; 2024-03-29)
DX: R53.1 Weakness (principal); I21.4 Non-ST elevation (NSTEMI) myocardial infarction; E46 Unspecified protein-calorie malnutrition; D68.4 Acquired coagulation factor deficiency; I95.9 Hypotension, unspecified; Z66 Do not resuscitate; H54.7 Unspecified visual loss; I10 Essential (primary) hypertension; E78.5 Hyperlipidemia, unspecified; K21.9 Gastro-esophageal reflux disease without esophagitis; K76.82 Hepatic encephalopathy; K70.30 Alcoholic cirrhosis of liver without ascites; E80.6 Other disorders of bilirubin metabolism; E88.09 Other disorders of plasma-protein metabolism, not elsewhere classified; L89.622 Pressure ulcer of left heel, stage 2; L89.612 Pressure ulcer of right heel, stage 2; L97.519 Non-pressure chronic ulcer of other part of right foot with unspecified severity; L97.529 Non-pressure chronic ulcer of other part of left foot with unspecified severity; L89.312 Pressure ulcer of right buttock, stage 2; F10.90 Alcohol use, unspecified, uncomplicated; D64.9 Anemia, unspecified; E83.42 Hypomagnesemia; M19.90 Unspecified osteoarthritis, unspecified site; Z23 Encounter for immunization; Z68.26 Body mass index [BMI] 26.0-26.9, adult; Z86.718 Personal history of other venous thrombosis and embolism; Z86.73 Personal history of transient ischemic attack (TIA), and cerebral infarction without residual deficits; Z86.16 Personal history of COVID-19; Z79.899 Other long term (current) drug therapy
CPT/HCPCS: 36415; 80053; 83735; 85025; 85610; 85730; 90653; 97110-GO; 97110-GP; 97116-GP; 97161-GP; 97165-GO; 97530-GO; 97530-GP; 99306; 99309; 99315; A9270-GY

== ENCOUNTER 2024-05-01 08:12 | Emergency (ER) | payer MEDICARE, BC ==
[2024-05-01 09:12] LABS: BASOPHILS PERCENT AUTO 0.5 % (0.0-1.0); HEMATOCRIT 28.7 % (40.0-54.0); HEMOGLOBIN 9.7 g/dL (14.0-18.0); LYMPHOCYTES PERCENT AUTO 19.5 % (20.5-50.1); MEAN CORPUSCULAR HEMOGLOBIN 31.2 pg (27.0-34.0); MEAN CORPUSCULAR HGB CONC 33.8 g/dL (33.0-35.0); MEAN CORPUSCULAR VOLUME 92.3 fL (80-100); MONOCYTES PERCENT AUTO 16.8 % (2-8); NEUTROPHILS PERCENT AUTO 55.2 % (42.2-75.2); PLATELET COUNT,PLT 277 10^3/uL (150-450); RED BLOOD CELL COUNT 3.11 10^6/uL (4.6-6.2); WHITE BLOOD CELL COUNT,WBC 6.5 10^3/uL (5.0-10.0)
[2024-05-01] MEDS: Iopamidol 612 MG/ML 100 ML Bottle IVPUSH ONE (09:17)
[2024-05-01 09:36] LABS: A/G RATIO 0.67; ALBUMIN 2.8 g/dL (3.4-5.0); ANION GAP 14.2 mEq/L (7-13); BILIRUBIN TOTAL 1.5 mg/dL (0.2-1.0); CALCIUM 9.1 mg/dL (8.5-10.1); CREATININE 1.33 mg/dL (0.70-1.30); EST CRCL DRUG DOSING (CG) 41.97 mL/min; MAGNESIUM 1.8 mg/dL (1.8-2.4); POTASSIUM,K 4.2 mmol/L (3.5-5.1)
[2024-05-01] MEDS: Ondansetron 4 MG/2 ML SDV IVPUSH ONE (09:56)
[2024-05-01] MEDS: Morphine 2 MG/ML SYRINGE IVPUSH ONE ×2 (09:56→10:44)
[2024-05-01] MEDS: Sodium Chloride 0.9% 1,000 ML IV ONE (09:58)
== END 2024-05-01 11:26 | disposition home or self-care (01) ==
LOC: DL.ED 08:12
DX: S00.03XA Contusion of scalp, initial encounter (principal); M25.512 Pain in left shoulder; D64.9 Anemia, unspecified; I12.9 Hypertensive chronic kidney disease with stage 1 through stage 4 chronic kidney disease, or unspecified chronic kidney disease; N18.9 Chronic kidney disease, unspecified; E86.9 Volume depletion, unspecified; I25.10 Atherosclerotic heart disease of native coronary artery without angina pectoris; I25.2 Old myocardial infarction; K21.9 Gastro-esophageal reflux disease without esophagitis; Z86.16 Personal history of COVID-19; Z86.73 Personal history of transient ischemic attack (TIA), and cerebral infarction without residual deficits; Z79.899 Other long term (current) drug therapy; W01.198A Fall on same level from slipping, tripping and stumbling with subsequent striking against other object, initial encounter
CPT/HCPCS: 36415; 70450; 71260; 72125; 73030; 80053; 83735; 84484; 85025; 93005; 96361; 96374; 96375; 96376; 99284; J2270; J2405; J7030; Q9967

== ENCOUNTER 2024-05-30 14:16 | Emergency (ER) | payer MEDICARE, BC ==
[2024-05-30 16:48] LABS: BASOPHILS PERCENT AUTO 0.4 % (0.0-1.0); EOSINOPHILS PERCENT AUTO 3.9 % (1.0-3.0); HEMATOCRIT 30.9 % (40.0-54.0); HEMOGLOBIN 10.5 g/dL (14.0-18.0); LYMPHOCYTES PERCENT AUTO 25.7 % (20.5-50.1); MEAN CORPUSCULAR HEMOGLOBIN 30.5 pg (27.0-34.0); MEAN CORPUSCULAR VOLUME 89.8 fL (80-100); MONOCYTES PERCENT AUTO 18.5 % (2-8); NEUTROPHILS PERCENT AUTO 51.5 % (42.2-75.2); PLATELET COUNT,PLT 288 10^3/uL (150-450); RED BLOOD CELL COUNT 3.44 10^6/uL (4.6-6.2)
[2024-05-30] MEDS: Ondansetron 4 MG Tab.DIS PO ONE (16:59)
[2024-05-30 17:21] LABS: LACTIC ACID 1.6 mmol/L (0.4-2.0)
[2024-05-30 17:22] LABS: ALANINE AMINOTRANSFERASE,ALT 25 U/L (16-63); ALBUMIN 3.2 g/dL (3.4-5.0); ALKALINE PHOSPHATASE 104 U/L (46-116); ANION GAP 16.6 mEq/L (7-13); ASPARTATE AMNIOTRANSFERASE,AST 29 U/L (15-37); BILIRUBIN TOTAL 1.3 mg/dL (0.2-1.0); BLOOD UREA NITROGEN,BUN 47 mg/dL (7-18); BUN/CREATININE RATIO 29.6 (No establ ref range); CALCIUM 10.6 mg/dL (8.5-10.1); CARBON DIOXIDE,CO2 23 mmol/L (21-32); CHLORIDE,CL 107 mmol/L (98-107); CREATININE 1.59 mg/dL (0.70-1.30); EST CRCL DRUG DOSING (CG) 36.38 mL/min; GLUCOSE RANDOM 104 mg/dL (70-99); MAGNESIUM 2.1 mg/dL (1.8-2.4); POTASSIUM,K 4.6 mmol/L (3.5-5.1); PROTEIN TOTAL,TP 7.7 g/dL (6.4-8.2); SODIUM,NA 142 mmol/L (136-145)
[2024-05-30 17:24] LABS: A/G RATIO 0.71; C-REACTIVE PROTEIN < 0.50 ng/dL (<=0.50); ESTIMATED GFR 44 mL/min (>=60); ETHANOL BLOOD MEDICAL < 3 mg/dL (0)
[2024-05-30 17:26] LABS: INR 1.1 (0.9-1.2); PROTHROMBIN TIME 11.7 SEC (9.0-12.0); PTT,PARTIAL THROMBOPLSTIN TIME 23.7 SEC (22.0-34.0)
[2024-05-30 17:30] LABS: APPEARANCE,URINE SLIGHTLY CLOUDY (CLEAR); BILIRUBIN,URINE NEGATIVE (NEGATIVE); COLOR,URINE YELLOW (YELLOW); GLUCOSE,URINE NEGATIVE (NEGATIVE); KETONES,URINE NEGATIVE (NEGATIVE); LEUKOCYTE ESTERASE,URINE TRACE (NEGATIVE); NITRITE,URINE NEGATIVE (NEGATIVE); OCCULT BLOOD,URINE SMALL (NEGATIVE); PROTEIN,URINE NEGATIVE (NEGATIVE); UROBILINOGEN,URINE 0.2 mg/dL (0.2-1.0)
[2024-05-30 17:33] LABS: AMPHETAMINES,URINE NEGATIVE (NEGATIVE); BARBITURATES,URINE NEGATIVE (NEGATIVE); BENZODIAZEPINE,URINE NEGATIVE (NEGATIVE); MDMA (ECSTASY), URINE NEGATIVE (NEGATIVE); METHADONE,URINE NEGATIVE (NEGATIVE); METHAMPHETAMINES,URINE NEGATIVE (NEGATIVE); OPIATES,URINE NEGATIVE (NEGATIVE); OXYCODONE,URINE NEGATIVE (NEGATIVE); PHENCYCLIDINE,URINE NEGATIVE (NEGATIVE); TCA,URINE NEGATIVE (NEGATIVE)
[2024-05-30 17:57] LABS: BACTERIA,URINE FEW /HPF (0-FEW/HPF); EPITHELIAL CELLS,URINE RARE /HPF (NOT SEEN); MUCUS,URINE FEW /LPF (NOT SEEN); RBC,URINE 0-5 /HPF (0-5)
[2024-05-30] MEDS: cefTRIAXone 1 GM Vial IVPUSH ONE (19:19)
[2024-05-30] MEDS: Magnesium Sulfate/Water Premix 2 GM in Premix Bag 1 BAG IV ONE (19:22)
[2024-05-30] MEDS: Sodium Chloride 0.9% 1,000 ML IV SCH (19:22)
== END 2024-05-30 20:04 | disposition home or self-care (01) ==
LOC: DL.ED 14:16
DX: E86.0 Dehydration (principal); N30.00 Acute cystitis without hematuria; I10 Essential (primary) hypertension; I25.2 Old myocardial infarction; K21.9 Gastro-esophageal reflux disease without esophagitis; E78.00 Pure hypercholesterolemia, unspecified; Z79.899 Other long term (current) drug therapy; Z86.16 Personal history of COVID-19
CPT/HCPCS: 36415; 70450; 80053; 80305-QW; 80307; 81001; 82140; 82947; 83605; 83735; 84145; 84484; 85025; 85610; 85730; 86140; 87086; 93010; 96374; 99284; 99285-25; A9270-GY; J0696; J7030

== ENCOUNTER 2024-06-04 22:06 | Inpatient (IN) | payer MEDICARE, BC ==
[2024-06-04 22:23] LABS: BASOPHILS PERCENT AUTO 0.3 % (0.0-1.0); EOSINOPHILS PERCENT AUTO 7.8 % (1.0-3.0); HEMATOCRIT 29.4 % (40.0-54.0); HEMOGLOBIN 9.9 g/dL (14.0-18.0); LYMPHOCYTES PERCENT AUTO 25.9 % (20.5-50.1); MEAN CORPUSCULAR HEMOGLOBIN 29.9 pg (27.0-34.0); MEAN CORPUSCULAR HGB CONC 33.7 g/dL (33.0-35.0); MEAN CORPUSCULAR VOLUME 88.8 fL (80-100); MONOCYTES PERCENT AUTO 20.3 % (2-8); NEUTROPHILS PERCENT AUTO 45.7 % (42.2-75.2); PLATELET COUNT,PLT 275 10^3/uL (150-450); RED BLOOD CELL COUNT 3.31 10^6/uL (4.6-6.2); WHITE BLOOD CELL COUNT,WBC 5.9 10^3/uL (5.0-10.0)
[2024-06-04 22:45] LABS: ALANINE AMINOTRANSFERASE,ALT 26 U/L (16-63); ALBUMIN 3.1 g/dL (3.4-5.0); ALKALINE PHOSPHATASE 97 U/L (46-116); ANION GAP 11.3 mEq/L (7-13); ASPARTATE AMNIOTRANSFERASE,AST 37 U/L (15-37); BILIRUBIN TOTAL 0.9 mg/dL (0.2-1.0); BLOOD UREA NITROGEN,BUN 52 mg/dL (7-18); BUN/CREATININE RATIO 42.6 (No establ ref range); CALCIUM 9.6 mg/dL (8.5-10.1); CARBON DIOXIDE,CO2 27 mmol/L (21-32); CHLORIDE,CL 100 mmol/L (98-107); CREATININE 1.22 mg/dL (0.70-1.30); EST CRCL DRUG DOSING (CG) 47.41 mL/min; GLUCOSE RANDOM 100 mg/dL (70-99); LIPASE 48 U/L (16-77); MAGNESIUM 2.1 mg/dL (1.8-2.4); POTASSIUM,K 4.3 mmol/L (3.5-5.1); PROTEIN TOTAL,TP 7.2 g/dL (6.4-8.2); SODIUM,NA 134 mmol/L (136-145)
[2024-06-04 22:48] LABS: A/G RATIO 0.76; ESTIMATED GFR 61 mL/min (>=60); ETHANOL BLOOD MEDICAL < 3 mg/dL (0)
[2024-06-04 22:55] LABS: INR 1.2 (0.9-1.2); PROTHROMBIN TIME 12.1 SEC (9.0-12.0)
[2024-06-04] MEDS: Lactulose Soln 10 GM/15 ML 30 ML UD Cup PO ONE (23:41)
[2024-06-05] MEDS: cefTRIAXone 1 GM Vial IVPUSH SCH (00:47)
[2024-06-05] MEDS: Lactulose Soln 10 GM/15 ML 30 ML UD Cup PO SCH ×2 (05:06→18:16)
[2024-06-05 07:01] LABS: HEMATOCRIT 26.7 % (40.0-54.0); MEAN CORPUSCULAR HEMOGLOBIN 30.2 pg (27.0-34.0); MEAN CORPUSCULAR HGB CONC 33.7 g/dL (33.0-35.0); MEAN CORPUSCULAR VOLUME 89.6 fL (80-100); PLATELET COUNT,PLT 264 10^3/uL (150-450); RED BLOOD CELL COUNT 2.98 10^6/uL (4.6-6.2); WHITE BLOOD CELL COUNT,WBC 5.7 10^3/uL (5.0-10.0)
[2024-06-05 07:03] LABS: BASOPHILS PERCENT AUTO 0.3 % (0.0-1.0); EOSINOPHILS PERCENT AUTO 9.6 % (1.0-3.0); LYMPHOCYTES PERCENT AUTO 27.4 % (20.5-50.1); MONOCYTES PERCENT AUTO 20.4 % (2-8); NEUTROPHILS PERCENT AUTO 42.3 % (42.2-75.2)
[2024-06-05 07:21] LABS: ALBUMIN 2.6 g/dL (3.4-5.0); ANION GAP 12.9 mEq/L (7-13); BILIRUBIN TOTAL 0.8 mg/dL (0.2-1.0); BUN/CREATININE RATIO 36.7 (No establ ref range); CALCIUM 9.4 mg/dL (8.5-10.1); CREATININE 1.28 mg/dL (0.70-1.30); EST CRCL DRUG DOSING (CG) 45.19 mL/min; POTASSIUM,K 3.9 mmol/L (3.5-5.1); PROTEIN TOTAL,TP 6.4 g/dL (6.4-8.2)
[2024-06-05 07:23] LABS: A/G RATIO 0.68
[2024-06-05 07:26] LABS: BAND PERCENT MAN 2 %; EOSINOPHILS PERCENT MAN 10 % (1-3); LYMPHOCYTES PERCENT MAN 26 % (20-50); MONOCYTES PERCENT MAN 15 % (2-8); SEG NEUTROPHILS PERCENT MAN 47 % (42-75)
[2024-06-05] MEDS: Midodrine 5 MG Tab PO SCH (10:08)
[2024-06-05 16:41] LABS: APPEARANCE,URINE CLEAR (CLEAR); BILIRUBIN,URINE NEGATIVE (NEGATIVE); COLOR,URINE YELLOW (YELLOW); GLUCOSE,URINE NEGATIVE (NEGATIVE); KETONES,URINE NEGATIVE (NEGATIVE); LEUKOCYTE ESTERASE,URINE NEGATIVE (NEGATIVE); NITRITE,URINE NEGATIVE (NEGATIVE); OCCULT BLOOD,URINE NEGATIVE (NEGATIVE); PROTEIN,URINE NEGATIVE (NEGATIVE)
[2024-06-05 16:46] LABS: AMPHETAMINES,URINE NEGATIVE (NEGATIVE); BARBITURATES,URINE NEGATIVE (NEGATIVE); BENZODIAZEPINE,URINE NEGATIVE (NEGATIVE); MDMA (ECSTASY), URINE NEGATIVE (NEGATIVE); METHADONE,URINE NEGATIVE (NEGATIVE); METHAMPHETAMINES,URINE NEGATIVE (NEGATIVE); OPIATES,URINE NEGATIVE (NEGATIVE); OXYCODONE,URINE NEGATIVE (NEGATIVE); PHENCYCLIDINE,URINE NEGATIVE (NEGATIVE); TCA,URINE NEGATIVE (NEGATIVE)
[2024-06-06] MEDS: Acetaminophen/HYDROcodone 325-5 MG Tab PO PRN (00:30)
[2024-06-06 06:43] LABS: CALCIUM 9.4 mg/dL (8.5-10.1); CREATININE 1.41 mg/dL (0.70-1.30); EST CRCL DRUG DOSING (CG) 41.02 mL/min
[2024-06-06] MEDS: Ondansetron 4 MG/2 ML SDV IVPUSH PRN (06:50)
[2024-06-06] MEDS: Pantoprazole 40 MG Tab.CR PO SCH (14:19)
[2024-06-06] MEDS: Sodium Chloride 0.9% 400 ML IV SCH (14:19)
[2024-06-06] MEDS: Magnesium Oxide 400 MG Tab PO SCH (18:38)
[2024-06-06] MEDS: Sucralfate 1 GM Tab PO SCH (18:38)
[2024-06-06] MEDS: Ascorbic Acid 500 MG Tab PO SCH (21:47)
[2024-06-07 06:47] LABS: ANION GAP 13.9 mEq/L (7-13); CALCIUM 9.3 mg/dL (8.5-10.1); CREATININE 1.53 mg/dL (0.70-1.30); EST CRCL DRUG DOSING (CG) 37.8 mL/min; POTASSIUM,K 3.9 mmol/L (3.5-5.1)
[2024-06-07] MEDS: Thiamine 100 MG Tab PO SCH (08:53)
[2024-06-07] MEDS: Midodrine 5 MG Tab PO SCH (08:54)
[2024-06-07] MEDS: Folic Acid 1 MG Tab PO SCH (08:55)
[2024-06-07] MEDS: Lactulose Soln 10 GM/15 ML 30 ML UD Cup PO SCH (17:55)
[2024-06-08 06:23] LABS: ANION GAP 13.7 mEq/L (7-13); CALCIUM 9.1 mg/dL (8.5-10.1); CREATININE 1.66 mg/dL (0.70-1.30); EST CRCL DRUG DOSING (CG) 34.84 mL/min; POTASSIUM,K 3.7 mmol/L (3.5-5.1)
[2024-06-08] MEDS: Magnesium Oxide 400 MG Tab PO SCH (18:13)
[2024-06-09 06:31] LABS: ANION GAP 9.6 mEq/L (7-13); CALCIUM 8.8 mg/dL (8.5-10.1); CREATININE 1.47 mg/dL (0.70-1.30); EST CRCL DRUG DOSING (CG) 39.35 mL/min; POTASSIUM,K 3.6 mmol/L (3.5-5.1)
[2024-06-09] MEDS: Spironolactone 25 MG Tab PO SCH (15:19)
[2024-06-09] MEDS: Iron Polysaccharides Complex 150 MG Cap PO SCH (20:11)
[2024-06-09] MEDS: Lactulose Soln 10 GM/15 ML 30 ML UD Cup PO SCH (20:11)
[2024-06-09] MEDS: Sodium Chloride 0.9% 10 ML Syringe FLUSH PRN (20:13)
[2024-06-10 06:17] LABS: BASOPHILS PERCENT AUTO 0.5 % (0.0-1.0); EOSINOPHILS PERCENT AUTO 5.7 % (1.0-3.0); LYMPHOCYTES PERCENT AUTO 28.2 % (20.5-50.1); MEAN CORPUSCULAR HEMOGLOBIN 29.9 pg (27.0-34.0); MEAN CORPUSCULAR HGB CONC 33.3 g/dL (33.0-35.0); MEAN CORPUSCULAR VOLUME 89.8 fL (80-100); MONOCYTES PERCENT AUTO 24.8 % (2-8); NEUTROPHILS PERCENT AUTO 40.8 % (42.2-75.2); PLATELET COUNT,PLT 224 10^3/uL (150-450); RED BLOOD CELL COUNT 3.34 10^6/uL (4.6-6.2); WHITE BLOOD CELL COUNT,WBC 5.9 10^3/uL (5.0-10.0)
[2024-06-10 06:41] LABS: ALBUMIN 2.5 g/dL (3.4-5.0); ANION GAP 10.6 mEq/L (7-13); BILIRUBIN TOTAL 0.8 mg/dL (0.2-1.0); BUN/CREATININE RATIO 28.7 (No establ ref range); CALCIUM 8.8 mg/dL (8.5-10.1); CREATININE 1.43 mg/dL (0.70-1.30); EST CRCL DRUG DOSING (CG) 40.45 mL/min; MAGNESIUM 2.3 mg/dL (1.8-2.4); POTASSIUM,K 3.6 mmol/L (3.5-5.1); PROTEIN TOTAL,TP 6.2 g/dL (6.4-8.2)
[2024-06-10 06:43] LABS: A/G RATIO 0.68
[2024-06-10] MEDS: Furosemide 20 MG Tab PO SCH (10:22)
== END 2024-06-10 12:03 | disposition swing bed (61) | DRG 442 ==
LOC: DL.ED 22:06 → DL.MS 06-05 00:09 → OBSVTOIN 06-06 08:36
PROVIDERS: ADMIT Internal Medicine; ATTEND Internal Medicine
DX: K76.82 Hepatic encephalopathy (principal); D64.9 Anemia, unspecified; E72.20 Disorder of urea cycle metabolism, unspecified; N39.0 Urinary tract infection, site not specified; K76.9 Liver disease, unspecified; Z66 Do not resuscitate; I25.10 Atherosclerotic heart disease of native coronary artery without angina pectoris; K21.9 Gastro-esophageal reflux disease without esophagitis; I12.9 Hypertensive chronic kidney disease with stage 1 through stage 4 chronic kidney disease, or unspecified chronic kidney disease; N18.9 Chronic kidney disease, unspecified; H54.7 Unspecified visual loss; D63.1 Anemia in chronic kidney disease; E78.5 Hyperlipidemia, unspecified; M19.90 Unspecified osteoarthritis, unspecified site; L89.329 Pressure ulcer of left buttock, unspecified stage; I95.9 Hypotension, unspecified; E83.41 Hypermagnesemia; K27.9 Peptic ulcer, site unspecified, unspecified as acute or chronic, without hemorrhage or perforation; I25.2 Old myocardial infarction; Z86.73 Personal history of transient ischemic attack (TIA), and cerebral infarction without residual deficits; Z79.899 Other long term (current) drug therapy; Z86.16 Personal history of COVID-19; Z98.890 Other specified postprocedural states
CPT/HCPCS: 36415; 70450; 71045; 74018; 80048; 80053; 80305-QW; 80307; 81003; 82140; 82947; 83690; 83735; 84484; 85025; 85610; 87086; 93005; 93010; 96374; 96375; 96376; 97161-GP; 97165-GO; 99223; 99232; 99233; 99238; 99285; A9270-GY; G0378; J0696; J2405; J7040

== ENCOUNTER 2024-06-10 10:03 | Inpatient (IN) | payer MEDICARE, BC ==
[2024-06-10] MEDS ORDERED: Ondansetron 4 MG/2 ML SDV IVPUSH PRN (11:42)
[2024-06-10] MEDS: Sucralfate 1 GM Tab PO SCH (16:16)
[2024-06-10] MEDS: Spironolactone 25 MG Tab PO SCH (16:19)
[2024-06-10] MEDS: Midodrine 5 MG Tab PO SCH (16:20)
[2024-06-10] MEDS: Magnesium Oxide 400 MG Tab PO SCH (18:22)
[2024-06-10] MEDS: Ascorbic Acid 500 MG Tab PO SCH (20:49)
[2024-06-10] MEDS: Iron Polysaccharides Complex 150 MG Cap PO SCH (20:49)
[2024-06-10] MEDS: Lactulose Soln 10 GM/15 ML 30 ML UD Cup PO SCH (20:49)
[2024-06-11] MEDS: Folic Acid 1 MG Tab PO SCH (08:44)
[2024-06-11] MEDS: Pantoprazole 40 MG Tab.CR PO SCH (12:03)
[2024-06-11] MEDS: Thiamine 100 MG Tab PO SCH (12:03)
[2024-06-11] MEDS: Furosemide 20 MG Tab PO SCH (12:03)
[2024-06-11] MEDS: Acetaminophen/HYDROcodone 325-5 MG Tab PO PRN (20:18)
[2024-06-13 10:17] LABS: ANION GAP 12.2 mEq/L (7-13); CALCIUM 8.7 mg/dL (8.5-10.1); CREATININE 1.29 mg/dL (0.70-1.30); EST CRCL DRUG DOSING (CG) 41.72 mL/min; MAGNESIUM 2.1 mg/dL (1.8-2.4); POTASSIUM,K 4.2 mmol/L (3.5-5.1)
[2024-06-13] MEDS: Rifaximin 550 MG Tab PO SCH (20:37)
[2024-06-14] MEDS: Melatonin 3 MG Tab PO PRN (20:22)
[2024-06-14] MEDS: QUEtiapine 25 MG Tab PO SCH (20:23)
[2024-06-15] MEDS: Sodium Chloride 0.9% 10 ML Syringe FLUSH PRN (21:29)
[2024-06-17 06:29] LABS: BASOPHILS PERCENT AUTO 0.2 % (0.0-1.0); EOSINOPHILS PERCENT AUTO 7.7 % (1.0-3.0); HEMATOCRIT 29.2 % (40.0-54.0); HEMOGLOBIN 9.7 g/dL (14.0-18.0); LYMPHOCYTES PERCENT AUTO 37.8 % (20.5-50.1); MEAN CORPUSCULAR HEMOGLOBIN 29.3 pg (27.0-34.0); MEAN CORPUSCULAR HGB CONC 33.2 g/dL (33.0-35.0); MEAN CORPUSCULAR VOLUME 88.2 fL (80-100); MONOCYTES PERCENT AUTO 18.5 % (2-8); NEUTROPHILS PERCENT AUTO 35.8 % (42.2-75.2); PLATELET COUNT,PLT 184 10^3/uL (150-450); RED BLOOD CELL COUNT 3.31 10^6/uL (4.6-6.2); WHITE BLOOD CELL COUNT,WBC 5.1 10^3/uL (5.0-10.0)
[2024-06-17 06:59] LABS: ALBUMIN 2.5 g/dL (3.4-5.0); ANION GAP 13.5 mEq/L (7-13); BILIRUBIN TOTAL 0.9 mg/dL (0.2-1.0); BUN/CREATININE RATIO 25.9 (No establ ref range); CALCIUM 9.4 mg/dL (8.5-10.1); CREATININE 1.35 mg/dL (0.70-1.30); EST CRCL DRUG DOSING (CG) 39.86 mL/min; MAGNESIUM 1.8 mg/dL (1.8-2.4); POTASSIUM,K 4.5 mmol/L (3.5-5.1); PROTEIN TOTAL,TP 6.2 g/dL (6.4-8.2)
[2024-06-17 07:00] LABS: A/G RATIO 0.68
== END 2024-06-18 10:35 | disposition other institution (70) | DRG 948 ==
LOC: DL.MS 12:10
PROVIDERS: ADMIT Internal Medicine; ATTEND Internal Medicine
DX: R53.1 Weakness (principal); J98.11 Atelectasis; D68.9 Coagulation defect, unspecified; E44.0 Moderate protein-calorie malnutrition; I12.0 Hypertensive chronic kidney disease with stage 5 chronic kidney disease or end stage renal disease; H54.7 Unspecified visual loss; Z66 Do not resuscitate; E78.5 Hyperlipidemia, unspecified; K80.20 Calculus of gallbladder without cholecystitis without obstruction; I51.7 Cardiomegaly; K21.9 Gastro-esophageal reflux disease without esophagitis; K70.30 Alcoholic cirrhosis of liver without ascites; K76.82 Hepatic encephalopathy; M19.90 Unspecified osteoarthritis, unspecified site; R47.1 Dysarthria and anarthria; N18.9 Chronic kidney disease, unspecified; F03.90 Unspecified dementia, unspecified severity, without behavioral disturbance, psychotic disturbance, mood disturbance, and anxiety; F32.A Depression, unspecified; F41.9 Anxiety disorder, unspecified; L89.329 Pressure ulcer of left buttock, unspecified stage; I95.9 Hypotension, unspecified; Z79.899 Other long term (current) drug therapy; Z86.16 Personal history of COVID-19; Z98.890 Other specified postprocedural states; Z86.73 Personal history of transient ischemic attack (TIA), and cerebral infarction without residual deficits; Z72.0 Tobacco use; Z68.26 Body mass index [BMI] 26.0-26.9, adult
CPT/HCPCS: 36415; 80048; 80053; 82140; 82947; 83735; 85025; 94010; 97110-GO; 97110-GP; 97116-GP; 97161-GP; 97165-GO; 97530-GO; 97530-GP; 97535-GO; 99306; 99309; 99315; A9270-GY